=== PATIENT | female | born 1995 | race Hispanic/Latino ===

== ENCOUNTER 2018-11-29 17:05 | Emergency (ER) | payer SELFPAY ==
--- NOTE | 2018-11-29 19:14 | EDPHYS ---
Physician Documentation [facility] Name: Dahlia Justin Age: 23 yrs Sex: Female : 1995 Arrival Date: 11/29/2018 Time: 17:09 Bed 28 Private MD: ED Physician Adrien Payan HPI: 11/29 17:54 This 23 yrs old Female presents to ER via Ambulatory with complaints of Flu jmm Symptoms. 17:54 The patient or guardian reports cough, described as moderate. Onset: The jmm symptoms/episode began/occurred gradually, 2 day(s) ago. Modifying factors: The symptoms are alleviated by nothing. the symptoms are aggravated by nothing. Associated signs and symptoms: Pertinent positives: fever, sore throat. Associated signs and symptoms: Pertinent negatives: chest pain, diarrhea, ear ache, nausea, vomiting. 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 - Social history:: Smoking status: Patient/guardian denies using tobacco. - Ebola Screening: : Patient denies travel to an Ebola-affected area in the 21 days before illness onset. ROS: 17:54 Constitutional: Positive for fever. jmm 17:54 ENT: Positive for sinus congestion, sinus pain, sore throat. 17:54 Respiratory: Positive for cough. 17:54 Abdomen/GI: Negative for vomiting, diarrhea. 17:54 All other systems are negative. Exam: 17:54 Head/Face: atraumatic. jmm 17:54 Neck: Trachea midline, Supple Chest/axilla: Normal chest wall appearance and motion. 17:54 Constitutional: The patient appears in no acute distress, alert, awake. 17:54 ENT: TM's: erythema, that is mild, bilaterally, Posterior pharynx: erythema, that is mild. 17:54 Cardiovascular: Rate: normal, Rhythm: regular, Pulses: no pulse deficits are appreciated. 17:54 Respiratory: the patient does not display signs of respiratory distress, Respirations: normal, Breath sounds: are clear throughout. 17:54 Abdomen/GI: Inspection: abdomen appears normal, Bowel sounds: normal. 17:54 Back: ROM is normal. 17:54 Musculoskeletal/extremity: ROM: intact in all extremities. 17:54 Neuro: Orientation: is normal, Mentation: is normal, Memory: is normal. 17:54 Psych: Behavior/mood is pleasant, cooperative. Vital Signs: 17:13 BP 122 / 73; Pulse 101; Resp 20; Temp 97.4; Pulse Ox 98% on R/A; Weight 97.52 kg; aj Height 5 ft. 1 in. (154.94 cm); 18:06 BP 118 / 75; Pulse 95; Resp 18; Pulse Ox 99% on R/A; aj1 19:26 BP 116 / 71; Pulse 92; Resp 16 S; Temp 99.2(O); Pulse Ox 99% on R/A; ca1 17:13 Body Mass Index 40.62 (97.52 kg, 154.94 cm) aj MDM: 17:54 Patient medically screened. [facility] 19:12 Data reviewed: vital signs, nurses notes. Counseling: I had a detailed discussion with lucio the patient and/or guardian regarding: the historical points, exam findings, and any diagnostic results supporting the discharge/admit diagnosis, lab results, the need for outpatient follow up, to return to the emergency department if symptoms worsen or persist or if there are any questions or concerns that arise at home. ED course: Patient is alert and non toxic in appearance in the ED. Patient advised to follow up with pcp and otherwise given strict return precautions. Patient understood and agrees with the plan of care. . 11/29 18:02 Order name: Flu; Complete Time: 19:07 [facility] 11/29 18:02 Order name: Strep; Complete Time: 19:09 [facility] 11/29 19:07 Order name: Throat Culture EDMS Administered Medications: No medications were administered Disposition: 11/30 07:24 Co-signature as Attending Physician, Adrien Payan MD I agree with the assessment and kdr plan of care. Disposition: 11/29/18 19:13 Discharged to Home. Impression: Influenza due to certain identified influenza viruses. - Condition is Stable. - Discharge Instructions: Influenza, Adult. - Prescriptions for Tamiflu 75 mg Oral Capsule - take 1 tablet by ORAL route every 12 hours for 5 days; 10 tablet. - Medication Reconciliation Form, Thank You Letter, Antibiotic Education, Prescription Opioid Use form. - Follow up: Private Physician; When: 1 - 2 days; Reason: Recheck today's complaints, Continuance of care, Re-evaluation by your physician. Signatures: Dispatcher [employer] EDWhitley Villalba RN RN aj1 Susan Dunham RN RN aj Adrien Payan MD MD kdr Mickail, Joel, PA PA jmm Acob, Cheryl RN RN ca1 Corrections: (The following items were deleted from the chart) 11/29 19:28 19:13 11/29/2018 19:13 Discharged to Home. Impression: Influenza due to certain ca1 identified influenza viruses. Condition is Stable. Forms are Medication Reconciliation Form, Thank You Letter, Antibiotic Education, Prescription Opioid Use. Follow up: Private Physician; When: 1 - 2 days; Reason: Recheck today's complaints, Continuance of care, Re-evaluation by your physician. tavares
--- NOTE | 2018-11-29 19:14 | ER ---
Nurse's Notes [facility] Name: Dahlia Justin Age: 23 yrs Sex: Female : 1995 Arrival Date: 11/29/2018 Time: 17:09 Bed 28 Private MD: Diagnosis: Influenza due to certain identified influenza viruses Presentation: 11/29 17:12 Presenting complaint: Patient states: Fly symptoms for 4 days with improving fever. aj Care prior to arrival: None. 17:12 Method Of Arrival: Ambulatory aj 17:12 Acuity: WENDI 4 aj 18:43 Transition of care: patient was not received from another setting of care. Onset of aj1 symptoms was November 2018. Risk Assessment: Do you want to hurt yourself or someone else? Patient reports no desire to harm self or others. Initial Sepsis Screen: Does the patient meet any 2 criteria? HR > 90 bpm. No. Patient's initial sepsis screen is negative. Does the patient have a suspected source of infection? Yes: Productive cough/pneumonia. Triage Assessment: 17:13 General: Appears in no apparent distress. comfortable, Behavior is calm, cooperative, aj appropriate for age. Pain: Denies pain. EENT: Reports nasal congestion nasal discharge. Respiratory: Reports cough that is. 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 - Social history:: Smoking status: Patient/guardian denies using tobacco. - Ebola Screening: : Patient denies travel to an Ebola-affected area in the 21 days before illness onset. Screenin:06 Abuse screen: Denies threats or abuse. Denies injuries from another. Nutritional aj1 screening: No deficits noted. Tuberculosis screening: No symptoms or risk factors identified. 19:27 Fall Risk None identified. ca1 Assessment: 18:06 General: Appears in no apparent distress. comfortable, Behavior is calm, cooperative, aj1 appropriate for age. Pain: Complains of pain in chest. Neuro: Level of Consciousness is awake, alert, obeys commands, Oriented to person, place, time, situation. Cardiovascular: Patient's skin is warm and dry. Cardiovascular: Reports chest pain with cough. Respiratory: Airway is patent Respiratory effort is even, unlabored, Respiratory pattern is regular, symmetrical, Breath sounds are clear bilaterally. GI: No signs and/or symptoms were reported involving the gastrointestinal system. : No signs and/or symptoms were reported regarding the genitourinary system. EENT: Reports nasal congestion nasal discharge sore throat. Derm: No signs and/or symptoms reported regarding the dermatologic system. Skin is pink, warm \T\ dry. normal. Musculoskeletal: No signs and/or symptoms reported regarding the musculoskeletal system. Circulation, motion, and sensation intact. Vital Signs: 17:13 BP 122 / 73; Pulse 101; Resp 20; Temp 97.4; Pulse Ox 98% on R/A; Weight 97.52 kg; aj Height 5 ft. 1 in. (154.94 cm); 18:06 BP 118 / 75; Pulse 95; Resp 18; Pulse Ox 99% on R/A; aj1 19:26 BP 116 / 71; Pulse 92; Resp 16 S; Temp 99.2(O); Pulse Ox 99% on R/A; ca1 17:13 Body Mass Index 40.62 (97.52 kg, 154.94 cm) aj ED Course: 17:09 Patient arrived in ED. as 17:13 Triage completed. aj 17:13 Arm band placed on left wrist. Patient placed in waiting room, Patient notified of wait aj time. 17:46 John Connell [facility] 17:46 Adrien Payan MD is Attending Physician. [facility] 18:06 Whitley Treviño, RN is Primary Nurse. aj1 18:06 Patient has correct armband on for positive identification. aj1 18:06 No provider procedures requiring assistance completed. aj1 18:37 Flu and/or RSV swab sent to lab. Strep swab sent to lab. lt1 18:38 Strep Sent. lt1 18:38 Flu Sent. lt1 19:28 Patient did not have IV access during this emergency room visit. ca1 Administered Medications: No medications were administered Outcome: 19:13 Discharge ordered by . [facility] 19:27 Discharged to home ambulatory, with significant other. ca1 19:27 Condition: stable 19:27 Discharge instructions given to patient, Instructed on discharge instructions, follow up and referral plans. medication usage, Demonstrated understanding of instructions, follow-up care, medications, Prescriptions given X 1. 19:28 Patient left the ED. ca1 Signatures: Whitley Treviño, RN RN aj1 Susan Dunham RN RN aj John Connell PA PA jmm Martinez, Amelia as Acob, Cheryl, RN RN ca1 Alejandra Dwyer 1
[2018-11-29 21:38] VITALS: O2SAT 99
[2018-11-29 21:40] VITALS: BP 116/71; TEMP 99.2
== END 2018-11-29 19:28 | disposition home or self-care (01) ==
LOC: ER 17:05
DX: J10.1 Influenza due to other identified influenza virus with other respiratory manifestations (principal)
CPT/HCPCS: 87070; 87081; 87804; 99283

== ENCOUNTER 2019-03-26 08:33 | Emergency (ER) | payer SELFPAY ==
[2019-03-26] MEDS ORDERED: dexAMETHasone 10 MG/ML VIAL ONE (09:02)
--- NOTE | 2019-03-26 09:45 | EDPHYS ---
Physician Documentation [facility] Name: Dahlia Justin Age: 23 yrs Sex: Female : 1995 Arrival Date: 03/26/2019 Time: 08:35 Bed 6 Private MD: ED Physician Kevin Vanegas HPI: 03/26 09:35 This 23 yrs old Female presents to ER via Ambulatory with complaints of Sore jmm Throat. 09:35 The patient presents with sore throat. Onset: The symptoms/episode began/occurred jmm gradually, 2 day(s) ago. Modifying factors: The symptoms are alleviated by nothing, the symptoms are aggravated by nothing. Associated signs and symptoms: Pertinent positives: Sore throat Pertinent negatives cough. This is a 23 year old female with no chronic medical conditions that presents to the ED with complaints of sore throat, fever for the past 2 days. Denies cough. Denies vomiting. Denies shortness of breath. . 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 - Social history:: Smoking status: Patient/guardian denies using tobacco. - Ebola Screening: : Patient denies exposure to infectious person Patient denies travel to an Ebola-affected area in the 21 days before illness onset. ROS: 09:35 Neck: Negative for injury, pain, and swelling, Cardiovascular: Negative for chest pain, jmm palpitations, and edema, Respiratory: Negative for shortness of breath, cough, wheezing, and pleuritic chest pain. 09:35 Abdomen/GI: Negative for abdominal pain, nausea, vomiting, diarrhea, and constipation. 09:35 Constitutional: Positive for body aches, fever. 09:35 ENT: Positive for sore throat. 09:35 Neuro: Positive for headache. 09:35 All other systems are negative. Exam: 09:35 Constitutional: This is a well developed, well nourished patient who is awake, alert, jmm and in no acute distress. Head/Face: atraumatic. Eyes: EOMI, no conjunctival erythema appreciated 09:35 Chest/axilla: Normal chest wall appearance and motion. Cardiovascular: Regular rate and rhythm. No edema appreciated Respiratory: Normal respirations, no respiratory distress appreciated Abdomen/GI: Non distended, soft Back: Normal ROM Skin: General appearance color normal MS/ Extremity: Moves all extremities, no obvious deformities appreciated, no edema noted to the lower extremities Neuro: Awake and alert, normal gait Psych: Behavior is normal, Mood is normal, Patient is cooperative and pleasant 09:35 ENT: TM's: are normal, Posterior pharynx: Airway: normal, Tonsils: enlarged on the right, enlarged on the left, with exudate, Uvula: midline, erythema, that is moderate, exudate, that is moderate, peritonsillar mass, is not appreciated. Vital Signs: 08:41 BP 121 / 92; Pulse 111; Resp 16; Temp 98.3(TE); Pulse Ox 98% on R/A; Weight 92.99 kg; ss Height 5 ft. 1 in. (154.94 cm); Pain 9/10; 09:37 BP 114 / 84; Pulse 97; Resp 17; Pulse Ox 95% on R/A; tw2 08:41 Body Mass Index 38.73 (92.99 kg, 154.94 cm) ss MDM: 08:46 Patient medically screened. liz 09:40 Data reviewed: vital signs, nurses notes. Counseling: I had a detailed discussion with lucio the patient and/or guardian regarding: the historical points, exam findings, and any diagnostic results supporting the discharge/admit diagnosis, lab results, the need for outpatient follow up, to return to the emergency department if symptoms worsen or persist or if there are any questions or concerns that arise at home. 09:42 ED course: PE findings consistent with acute tonsillitis. Patient prescribed oral [facility] antibiotics. Patient given strict return precautions. Patient understood and agrees with the plan of care. . 03/26 08:55 Order name: Strep; Complete Time: 09:41 [facility] 03/26 09:39 Order name: Throat Culture EDMS Administered Medications: 09:04 Drug: Decadron 10 mg Route: IM; Site: right deltoid; aa5 09:20 Follow up: Response: No adverse reaction aa5 Disposition: 12:56 Co-signature as Attending Physician, Kevin Vanegas MD I agree with the assessment and liz plan of care. Disposition: 03/26/19 09:43 Discharged to Home. Impression: Acute pharyngitis. - Condition is Stable. - Discharge Instructions: Pharyngitis. - Prescriptions for Amoxicillin 875 mg Oral Tablet - take 1 tablet by ORAL route every 12 hours for 10 days; 20 tablet. - Medication Reconciliation Form, Thank You Letter, Antibiotic Education, Prescription Opioid Use, Work release form form. - Follow up: Private Physician; When: 2 - 3 days; Reason: Recheck today's complaints, Continuance of care, Re-evaluation by your physician. Signatures: Dispatcher [employer] EDKevin Quezada MD MD cha Mickail, Joel, PA PA jmm Calderon, Audri, RN RN aa5 Courtney Brannon RN RN ss Luz Maria Oconnell 3 Corrections: (The following items were deleted from the chart) 09:52 09:43 03/26/2019 09:43 Discharged to Home. Impression: Acute pharyngitis. Condition is dh3 Stable. Forms are Work release form, Medication Reconciliation Form, Thank You Letter, Antibiotic Education, Prescription Opioid Use. Follow up: Private Physician; When: 2 - 3 days; Reason: Recheck today's complaints, Continuance of care, Re-evaluation by your physician. tavares
--- NOTE | 2019-03-26 09:45 | ER ---
Nurse's Notes [facility] Name: Dahlia Justin Age: 23 yrs Sex: Female : 1995 Arrival Date: 03/26/2019 Time: 08:35 Bed 6 Private MD: Diagnosis: Acute pharyngitis Presentation: 03/26 08:42 Presenting complaint: Patient states: sore throat and subjective fever x 2 days. ss Transition of care: patient was not received from another setting of care. Onset of symptoms was March 24, 2019. Risk Assessment: Do you want to hurt yourself or someone else? Patient reports no desire to harm self or others. Initial Sepsis Screen: Does the patient meet any 2 criteria? No. Patient's initial sepsis screen is negative. Does the patient have a suspected source of infection? No. Patient's initial sepsis screen is negative. Care prior to arrival: None. 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 - Social history:: Smoking status: Patient/guardian denies using tobacco. - Ebola Screening: : Patient denies exposure to infectious person Patient denies travel to an Ebola-affected area in the 21 days before illness onset. Screenin:41 Abuse screen: Denies threats or abuse. Nutritional screening: No deficits noted. aa5 Tuberculosis screening: No symptoms or risk factors identified. Fall Risk None identified. Assessment: 08:50 General: Appears uncomfortable, Behavior is calm, cooperative. Pain: Complains of pain aa5 in throat Pain currently is 9 out of 10 on a pain scale. Neuro: Level of Consciousness is awake, alert, obeys commands, Oriented to person, place, time, situation. Cardiovascular: Heart tones S1 S2 present Rhythm is regular. Respiratory: Airway is patent Respiratory effort is even, unlabored, Respiratory pattern is regular, symmetrical, Breath sounds are clear bilaterally. Denies cough. GI: No signs and/or symptoms were reported involving the gastrointestinal system. : No signs and/or symptoms were reported regarding the genitourinary system. EENT: Throat is reddened. Derm: Skin is pink, warm \T\ dry. Musculoskeletal: Range of motion: intact in all extremities. 09:37 Reassessment: Patient appears in no apparent distress at this time. No changes from tw2 previously documented assessment. Patient and/or family updated on plan of care and expected duration. Pain level reassessed. Patient is alert, oriented x 3, equal unlabored respirations, skin warm/dry/pink. 09:50 Reassessment: Patient is alert, oriented x 3, equal unlabored respirations, skin aa5 warm/dry/pink. Vital Signs: 08:41 BP 121 / 92; Pulse 111; Resp 16; Temp 98.3(TE); Pulse Ox 98% on R/A; Weight 92.99 kg; ss Height 5 ft. 1 in. (154.94 cm); Pain 9/10; 09:37 BP 114 / 84; Pulse 97; Resp 17; Pulse Ox 95% on R/A; tw2 08:41 Body Mass Index 38.73 (92.99 kg, 154.94 cm) ED Course: 08:35 Patient arrived in ED. as 08:38 Katiana Trammell, DAWNA is Primary Nurse. aa5 08:39 John Connell PA is PHCP. [facility] 08:39 Kevin Vanegas MD is Attending Physician. [facility] 08:41 Arm band placed on Patient placed in an exam room, on a stretcher. aa5 08:41 Patient has correct armband on for positive identification. Bed in low position. Call aa5 light in reach. Side rails up X 1. 08:43 Triage completed. 09:00 Strep swab sent to lab. aa5 09:06 No provider procedures requiring assistance completed. aa5 09:50 Patient did not have IV access during this emergency room visit. aa5 Administered Medications: 09:04 Drug: Decadron 10 mg Route: IM; Site: right deltoid; aa5 09:20 Follow up: Response: No adverse reaction aa5 Outcome: :43 Discharge ordered by . [facility] 09:50 Discharged to home ambulatory. aa5 09:50 Condition: stable 09:50 Discharge instructions given to patient, Instructed on discharge instructions, follow up and referral plans. medication usage, Demonstrated understanding of instructions, follow-up care, medications, Prescriptions given X 1. 09:52 Patient left the ED. 3 Signatures: John Connell PA PA jmm Martinez, Amelia as Calderon, Audri, RN RN aa5 Courtney Brannon RN RN ss Reba Farmer RN RN tw2 Luz Maria Oconnell 3
[2019-03-26 10:03] VITALS: BP 114/84; O2SAT 95
[2019-03-26 10:04] VITALS: TEMP 98.3
== END 2019-03-26 09:52 | disposition home or self-care (01) ==
LOC: ER 08:33
DX: J02.9 Acute pharyngitis, unspecified (principal)
CPT/HCPCS: 87070; 87081; 96372; 99283; J1100

== ENCOUNTER 2019-08-03 03:55 | Emergency (ER) | payer SELFPAY ==
[2019-08-03] MEDS ORDERED: KETOROLAC 30 MG/ML INJ ONE (04:16)
[2019-08-03] MEDS ORDERED: NA CHLORIDE 0.9% 1,000 ML ONE (04:17)
[2019-08-03 04:50] LABS: Basophils % 0.5 % (0-1.3); Hematocrit 44.4 % (36.0-45.0); Lymphocytes % 37.8 % (15.3-44.8); MPV 8.1 fL (7.6-11.3)
[2019-08-03 05:02] LABS: ALT/SGPT 32 U/L (12-78); AST/SGOT 26 U/L (15-37); Albumin 3.5 g/dL (3.4-5.0); Alkaline Phosphatase 104 U/L (45-117); BUN Blood Urea Nitrogen 17 mg/dL (7-18); Bicarbonate 28 mmol/L (21-32); Bilirubin Total 0.4 mg/dL (0.2-1.0); Glucose Level 154 mg/dL (74-106); Lipase 49 U/L (73-393); Potassium 3.6 mmol/L (3.5-5.1); Protein, Total 7.8 g/dL (6.4-8.2); Sodium Level 139 mmol/L (136-145)
[2019-08-03] MEDS ORDERED: MAGNE/ALUM HYDROXD 30 ML UCUP ONE (05:17)
[2019-08-03] MEDS ORDERED: LIDOCAINE VISCOUS 2% SOLN 15 ML UDC ONE (05:18)
--- NOTE | 2019-08-03 06:12 | ER ---
Nurse's Notes [facility] Name: Dahlia Justin Age: 24 yrs Sex: Female : 1995 Arrival Date: 08/03/2019 Time: 03:57 Bed 7 Private MD: Diagnosis: Generalized abdominal pain Presentation: 08/03 04:05 Presenting complaint: Patient states: I woke up having dull abdominal pain on and off. rr5 denies nausea/vomiting/diarrhea. 04:05 Transition of care: patient was not received from another setting of care. Onset of rr5 symptoms was August 03, 2019 at 03:30. Risk Assessment: Do you want to hurt yourself or someone else? Patient reports no desire to harm self or others. Initial Sepsis Screen: Does the patient meet any 2 criteria? No. Patient's initial sepsis screen is negative. Does the patient have a suspected source of infection? No. Patient's initial sepsis screen is negative. Care prior to arrival: None. 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 - Coronavirus screen:: The patient has NOT traveled to [place] in the past 14 days. Proceed with normal triage process as indicated. - Social history:: Smoking status: unknown Patient uses alcohol, occasionally. Patient/guardian denies using street drugs. - Ebola Screening: : Patient negative for fever greater than or equal to 101.5 degrees Fahrenheit, and additional compatible Ebola Virus Disease symptoms Patient denies exposure to infectious person Patient denies travel to an Ebola-affected area in the 21 days before illness onset. Screenin:10 Abuse screen: Denies threats or abuse. Denies injuries from another. Nutritional rr5 screening: No deficits noted. Tuberculosis screening: No symptoms or risk factors identified. Fall Risk IV access (20 points). Total Wayne Fall Scale indicates No Risk (0-24 pts). Assessment: 04:05 General: Appears in no apparent distress. uncomfortable, Behavior is calm, cooperative, rr5 appropriate for age. 04:05 Pain: Complains of pain in epigastric area Pain radiates to chest Pain currently is 10 rr5 out of 10 on a pain scale. Quality of pain is described as dull, Pain began suddenly, Is intermittent. Neuro: Level of Consciousness is awake, alert, obeys commands, Oriented to person, place, time, situation, Appropriate for age. Cardiovascular: Capillary refill < 3 seconds Patient's skin is warm and dry. Respiratory: Airway is patent Respiratory effort is even, unlabored, Respiratory pattern is regular, symmetrical. GI: Abdomen is round Bowel sounds present X 4 quads. Abd is non tender Guarding noted in epigastric area Reports upper abdominal pain, epigastric pain, Pain is 10 out of 10 on a pain scale. Patient currently denies diarrhea, nausea, vomiting. : No signs and/or symptoms were reported regarding the genitourinary system. EENT: No signs and/or symptoms were reported regarding the EENT system. Derm: Skin is intact, is healthy with good turgor, Skin temperature is warm. Musculoskeletal: Circulation, motion, and sensation intact. Capillary refill < 3 seconds. 04:35 Reassessment: Patient appears in no apparent distress at this time. Patient is alert, rr5 oriented x 3, equal unlabored respirations, skin warm/dry/pink. awaiting for blood results. Patient states feeling better. Patient states symptoms have improved. Pain: Pain currently is 3 out of 10 on a pain scale. 05:19 Reassessment: Patient appears in no apparent distress at this time. Patient and/or jd3 family updated on plan of care and expected duration. Pain level reassessed. Patient is alert, oriented x 3, equal unlabored respirations, skin warm/dry/pink. Patient states feeling better. 06:09 Reassessment: Patient appears in no apparent distress at this time. Patient and/or jd3 family updated on plan of care and expected duration. Pain level reassessed. Patient is alert, oriented x 3, equal unlabored respirations, skin warm/dry/pink. Patient denies pain at this time. Patient states feeling better. 06:27 Reassessment: Patient appears in no apparent distress at this time. Patient and/or jd3 family updated on plan of care and expected duration. Pain level reassessed. Patient is alert, oriented x 3, equal unlabored respirations, skin warm/dry/pink. Vital Signs: 04:05 BP 117 / 74; Pulse 76; Resp 19; Temp 98.5; Pulse Ox 99% ; Weight 97.52 kg; Height 5 ft. rr5 1 in. (154.94 cm); Pain 10/10; 05:19 BP 108 / 94; Pulse 81; Resp 17 S; Pulse Ox 99% on R/A; Pain 3/10; jd3 05:19 Pain 3/10; jd3 06:09 BP 105 / 64; Pulse 79; Resp 16 S; Pulse Ox 99% on R/A; Pain 0/10; jd3 06:09 Pain 0/10; jd3 04:05 Body Mass Index 40.62 (97.52 kg, 154.94 cm) rr5 ED Course: 03:57 Patient arrived in ED. cl3 03:58 Po Wright RN is Primary Nurse. rr5 03:58 Henry Harry MD is Attending Physician. ps1 04:05 Arm band placed on right wrist. rr5 04:08 Triage completed. rr5 04:11 Patient has correct armband on for positive identification. Placed in gown. Bed in low rr5 position. Call light in reach. Pulse ox on. NIBP on. 04:23 Inserted saline lock: 20 gauge in right antecubital area, using aseptic technique. jd3 Blood collected. placed by EVAN Quinonez. 04:36 Diet: Patient is NPO. explained and instructed.. rr5 04:37 No provider procedures requiring assistance completed. rr5 06:25 IV discontinued, intact, bleeding controlled, No redness/swelling at site. Pressure jd3 dressing applied. Administered Medications: 04:22 Drug: NS 0.9% 1000 ml Route: IV; Rate: 1 bolus; Site: right antecubital; jd3 06:10 Follow up: Response: No adverse reaction; IV Status: Completed infusion; IV Intake: jd3 1000ml 04:22 Drug: TORadol - Ketorolac 15 mg Route: IVP; Site: right antecubital; jd3 05:19 Follow up: Pain 3/10 Adult; Response: No adverse reaction jd3 05:18 Drug: GI Cocktail without - (Maalox Suspension 30 ml, Lidocaine Liquid 2 % 15 jd3 ml) Route: PO; 06:09 Follow up: Pain 0/10 Adult; Response: No adverse reaction; Pain is decreased jd3 Intake: 06:10 IV: 1000ml; Total: 1000ml. jd3 Outcome: 06:11 Discharge ordered by . ps1 06:23 Discharged to home ambulatory, with family. jd3 06:23 Condition: stable 06:23 Discharge instructions given to patient, family, Instructed on discharge instructions, follow up and referral plans. medication usage, Demonstrated understanding of instructions, follow-up care, medications, Prescriptions given X 3. 06:28 Patient left the ED. jd3 Signatures: Donovan Enriquez RN RN jd3 Henry Harry MD MD ps1 Po Wright RN RN rr5 Andree Ellis cl3 Corrections: (The following items were deleted from the chart) 04:24 04:23 Inserted saline lock: 20 gauge in right antecubital area, using aseptic jd3 technique. Blood collected. jd3
--- NOTE | 2019-08-03 06:12 | EDPHYS ---
Physician Documentation [facility] Name: Dahlia Justin Age: 24 yrs Sex: Female : 1995 Arrival Date: 08/03/2019 Time: 03:57 Bed 7 Private MD: ED Physician Henry Harry HPI: 08/03 04:05 This 24 yrs old Female presents to ER via Unassigned with complaints of ps1 Abdominal Pain, Shortness Of Breath. 04:05 patient was awakened from sleep with epigastric pain and pain with deep inspiration. ps1 Patient has recent history of alcohol consumption. Pain is described as dull and rated as moderate. No association with food and does not radiated. No fever. Normal bowel movements. . 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 - Coronavirus screen:: The patient has NOT traveled to [place] in the past 14 days. Proceed with normal triage process as indicated. - Social history:: Smoking status: unknown Patient uses alcohol, occasionally. Patient/guardian denies using street drugs. - Ebola Screening: : Patient negative for fever greater than or equal to 101.5 degrees Fahrenheit, and additional compatible Ebola Virus Disease symptoms Patient denies exposure to infectious person Patient denies travel to an Ebola-affected area in the 21 days before illness onset. ROS: 04:05 Constitutional: Negative for fever, chills, and weight loss, Eyes: Negative for injury, ps1 pain, redness, and discharge, Cardiovascular: Negative for chest pain, palpitations, and edema, Respiratory: Negative for shortness of breath, cough, wheezing, and pleuritic chest pain, MS/Extremity: Negative for injury and deformity, Skin: Negative for injury, rash, and discoloration, Neuro: Negative for headache, weakness, numbness, tingling, and seizure. 04:05 Abdomen/GI: Positive for abdominal pain, nausea. Exam: 04:07 Constitutional: This is a well developed, well nourished patient who is awake, alert, ps1 and in no acute distress. Head/Face: Normocephalic, atraumatic. Eyes: Pupils equal round and reactive to light, extra-ocular motions intact. Lids and lashes normal. Conjunctiva and sclera are non-icteric and not injected. Chest/axilla: Normal chest wall appearance and motion. Nontender with no deformity. No lesions are appreciated. Cardiovascular: Regular rate and rhythm. No gallops, murmurs, or rubs. Normal PMI, no JVD. No pulse deficits. Respiratory: Lungs have equal breath sounds bilaterally, clear to auscultation and percussion. No rales, rhonchi or wheezes noted. No increased work of breathing, no retractions or nasal flaring. MS/ Extremity: Pulses equal, no cyanosis. Neurovascular intact. Full, normal range of motion. Neuro: Awake and alert, GCS 15, oriented to person, place, time, and situation. Cranial nerves II-XII grossly intact. Sensory grossly intact. 04:07 Abdomen/GI: Inspection: abdomen appears normal, Bowel sounds: normal, Palpation: moderate abdominal tenderness, in the epigastric area. Vital Signs: 04:05 BP 117 / 74; Pulse 76; Resp 19; Temp 98.5; Pulse Ox 99% ; Weight 97.52 kg; Height 5 ft. rr5 1 in. (154.94 cm); Pain 10/10; 05:19 BP 108 / 94; Pulse 81; Resp 17 S; Pulse Ox 99% on R/A; Pain 3/10; jd3 05:19 Pain 3/10; jd3 06:09 BP 105 / 64; Pulse 79; Resp 16 S; Pulse Ox 99% on R/A; Pain 0/10; jd3 06:09 Pain 0/10; jd3 04:05 Body Mass Index 40.62 (97.52 kg, 154.94 cm) rr5 MDM: 04:08 Patient medically screened. ps1 08/03 04:05 Order name: CBC with Diff; Complete Time: 05:01 ps1 08/03 04:05 Order name: CMP; Complete Time: 05:05 ps1 08/03 04:05 Order name: Lipase; Complete Time: 05:05 ps1 08/03 04:05 Order name: NPO; Complete Time: 04:07 ps1 Administered Medications: 04:22 Drug: NS 0.9% 1000 ml Route: IV; Rate: 1 bolus; Site: right antecubital; jd3 06:10 Follow up: Response: No adverse reaction; IV Status: Completed infusion; IV Intake: jd3 1000ml 04:22 Drug: TORadol - Ketorolac 15 mg Route: IVP; Site: right antecubital; jd3 05:19 Follow up: Pain 3/10 Adult; Response: No adverse reaction jd3 05:18 Drug: GI Cocktail without - (Maalox Suspension 30 ml, Lidocaine Liquid 2 % 15 jd3 ml) Route: PO; 06:09 Follow up: Pain 0/10 Adult; Response: No adverse reaction; Pain is decreased jd3 Disposition: 08/03/19 06:11 Discharged to Home. Impression: Generalized abdominal pain. - Condition is Stable. - Discharge Instructions: Abdominal Pain, Adult. - Prescriptions for Bentyl 10 mg Oral Capsule - take 1 capsule by ORAL route every 6 hours As needed; 40 capsule. Carafate 1 gram Oral Tablet - take 1 tablet by ORAL route 4 times per day take on an empty stomach, beginning on waking and last dose at bedtime; 100 tablet. Zofran 4 mg Oral Tablet - take 1 tablet by ORAL route every 12 hours As needed; 20 tablet. - Medication Reconciliation Form, Thank You Letter, Antibiotic Education, Prescription Opioid Use form. - Follow up: Private Physician; When: As needed; Reason: Recheck today's complaints, Continuance of care, Re-evaluation by your physician. Follow up: Emergency Department; When: As needed; Reason: Fever > 102 F, Worsening of condition. - Problem is new. - Symptoms have improved. Signatures: Dispatcher [employer] Donovan Baeza RN RN jd3 Henry Harry MD MD ps1 Roque, Raymond RN RN rr5 Corrections: (The following items were deleted from the chart) 06:28 06:11 08/03/2019 06:11 Discharged to Home. Impression: Generalized abdominal pain. jd3 Condition is Stable. Forms are Medication Reconciliation Form, Thank You Letter, Antibiotic Education, Prescription Opioid Use. Follow up: Private Physician; When: As needed; Reason: Recheck today's complaints, Continuance of care, Re-evaluation by your physician. Follow up: Emergency Department; When: As needed; Reason: Fever > 102 F, Worsening of condition. Problem is new. Symptoms have improved. ps1
[2019-08-03 07:46] VITALS: TEMP 98.5; O2SAT 99
[2019-08-03 07:48] VITALS: BP 108/94
== END 2019-08-03 06:28 | disposition home or self-care (01) ==
LOC: ER 03:55
DX: R10.84 Generalized abdominal pain (principal)
CPT/HCPCS: 36415; 80053; 83690; 85025; 96361; 96374; 99284; J7030

== ENCOUNTER 2022-06-08 17:09 | Emergency (ER) | payer BC, SELFPAY ==
--- OUTSIDE RECORDS SUMMARY | 2022-06-08 17:19 | XMS REPORT | Continuity of Care Document ---
:[address] [facility] t Address [address] [place] [address] Care Team Providers Name Role Phone TOM DOMINGUEZ Primary Care Physician Unavailable SEPIDEH ANTHONY Attending Clinician Unavailable AMALIA MYERS Attending Clinician Unavailable 2, [facility] Attending Clinician Unavailable Abhi Mendoza MD Attending Clinician ABHI MENDOZA Attending Clinician Unavailable Doctor Unassigned, [place] Attending Clinician Unavailable Sepideh Anthony Attending Clinician Suresh Noriega Attending Clinician Vinita Mobley Attending Clinician SEPIDEH ANTHONY Attending Clinician Unavailable Sabina Coley MA Attending Clinician Unavailable LEAH JAMIL Attending Clinician Unavailable Lab, [facility] Pob I Attending Clinician Unavailable Leah Pacheco Attending Clinician Gisela Duff Attending Clinician GISELA LAINEZ Attending Clinician Unavailable Keisha Garcia Attending Clinician KEISHA CEJA Attending Clinician Unavailable SEPIDEH ANTHONY Admitting Clinician Unavailable Sepideh Anthony Admitting Clinician Payers Payer Name Policy Type Policy Number Effective Date Expiration Date Lara collazo BCBSTX PPO [id number] 2020 00:00:00 2024 00: 00:00 Problems Condition Condition Condition Status Onset Resolution Last Treating Co mments Source Name Details Category Date Date Treatment Clinician Date Previous Previous Disease Active 2021-06 Unive rs 2-15 ity of section section 00:00: [address] High-risk High-risk Disease Active 2021-06 Uni vers 2-15 ity of in first in first 00:00: [place] trimester trimester 00 [facility] Obesity Obesity Disease Active 2021-06 Univers (BMI (BMI 2-15 ity of 30-39.9) 30-39.9) 00:00: [address] Obesity in Obesity in Disease Active 2021-06 U nivers , , 2-15 [place] [address] [place] [address] History of History of Disease Active 2021-06 U nivers gastric gastric 2-15 ity of restrictiv restrictiv 00:[place] e surgery 00 [facility] Nausea and Nausea and Disease Active 2021-06 U nivers vomiting vomiting 2-15 ity of during during 00:00: [place] 00 [facility] prior to prior to Branch 22 weeks 22 weeks gestation gestation [id number], [id number], Diagnosis Active 2021-10-02 Me moria MORBID MORBID 12-19 16:42:00 l OBESITY OBESITY 00:00: [place] Active 00 12/19/2020 [facility] Morbid Morbid Problem Active 2021-05-24 Olaf den[place] obesity obesity 02:34:07 l (disorder) (disorder) He r[place] Active Problem 05/24/2021 [facility] ILLNESS, ILLNESS, Diagnosis Active 2021-10-02 Memoria UNSPECIFIE UNSPECIFIE 16:42:00 l D D Active [place] [facility] Allergies, Adverse Reactions, Alerts Allergy Allergy Status Severity Reaction(s) Onset Inactive Treating Comm ents Source Name Type Date Date Clinician NO KNOWN Drug Active Univers ALLERGIE Class ity of S [facility] Social History Social Habit Start Date Stop Date Quantity Comments Source ASSERTION 2022-04-16 University of 00:00:00 [facility] Exposure to Not sure University of SARS-CoV-2 [facility] (event) [place] History of Passive smoker University of tobacco use [facility] Tobacco use and 2022-05-27 2022-05-27 Smokeless tobacco Un iversity of exposure 00:00:00 00:00:00 non-user [facility] Alcohol intake 2022-05-27 2022-05-27 Ex-drinker [facility] 00:00:00 00:00:00 (finding) [facility]igned At [birth year] [facility] 00:00:00 [facility] Smoking Status Start Date Stop Date Source Unknown if ever smoked [facility] Social History [facility] Medications Ordered Filled Start Stop Current Ordering Indication Dosage Frequency Signature Comments Components Source Medication Medication Date Date Medication? Clinician (SIG) Name Name lancets 2021-06 Yes Use as Unive rs gauge Misc 08-09 directed ity o f 00:00: [place] 00 [facility] Blood-Gluco 2021-06 Yes Use as Univ ers se 2 directed ity of Meter,Anthony 00:00: [place] nuous [facility] 00 [facility] Blood Sugar 2021-06 Yes Check Unive rs Diagnostic, 08-09 sugar 4 ity o f Disc Strp 00:00: times a [place] 00 day as Medical directed Branch Alcohol 2021-06 Yes Apply to Univer s Swabs PadM 08-09 area(s) 4 ity of 00:00: (four) [place] 00 times Medical daily. Branch metroNIDAZO 2021-06- Yes [id number] 500mg Take 1 Univers LE (FLAGYL) 08-01 tablet by it y of 500 mg 00:00: 05:59 mouth in [place] tablet 00 :00 the Medical morning Branch and 1 tablet in the evening. Do all this for 7 days. metroNIDAZO 2021-06- Yes [id number] 500mg Take 1 Univers LE (FLAGYL) 08-01 tablet by it y of 500 mg 00:00: 05:59 mouth in [place] tablet 00 :00 the Medical morning Branch and 1 tablet in the evening. Do all this for 7 days. PNV 2021-06 Yes Take by Univers no.95/nilay 2-15 mouth. ity of us 14:15: [place] fum/folic 21 Medical ac Branch ( ORAL) PNV 2021-06 Yes Take by Univers no.95/nilay 2-15 mouth. ity of us 14:15: [place] fum/folic 21 Medical ac Branch ( ORAL) PNV 2021-06 Yes Take by Univers no.95/nilay 2-15 mouth. ity of us 14:15: [place] fum/folic 21 Medical ac Branch ( ORAL) PNV 2021-06 Yes Take by Univers no.95/nilay 2-15 mouth. ity of us 14:15: [place] fum/folic 21 Medical ac Branch ( ORAL) PNV 2021-06 Yes Take by Univers no.95/nilay 2-15 mouth. ity of us 14:15: [place] fum/folic 21 Medical ac Branch ( ORAL) PNV 2021-06 Yes Take by Univers no.95/nilay 2-15 mouth. ity of us 14:15: [place] fum/folic 21 Medical ac Branch ( ORAL) pyridoxine, 2021-06 Yes [id number] 25mg Take 1 Univers VITAMIN 2-15 tablet by ity of B-6, 00:00: mouth [place] (VITAMIN 00 every 6 Medical B-6) 25 mg (six) Branch tablet hours as needed for Nausea and Vomiting (N/V). doxylamine 2021-06 Yes [id number] 25mg Take 1 U nivers (UNISOM, 2-15 tablet by ity of DOXYLAMINE, 00:00: [place] 25 mg 00 bedtime as Medica l tablet needed for Branch Nausea and Vomiting (N/V). pyridoxine, 2021-06 Yes [id number] 25mg Take 1 Univers VITAMIN 2-15 tablet by ity of B-6, 00:00: mouth [place] (VITAMIN 00 every 6 Medical B-6) 25 mg (six) Branch tablet hours as needed for Nausea and Vomiting (N/V). doxylamine 2021-06 Yes [id number] 25mg Take 1 U nivers (UNISOM, 2-15 tablet by ity of DOXYLAMINE, [place]:00: [place] 25 mg 00 bedtime as Medica l tablet needed for Branch Nausea and Vomiting (N/V). pyridoxine, 2021-06 Yes [id number] 25mg Take 1 Univers VITAMIN 2-15 tablet by ity of B-6, 00:00: mouth [place] (VITAMIN 00 every 6 Medical B-6) 25 mg (six) Branch tablet hours as needed for Nausea and Vomiting (N/V). doxylamine 2021-06 Yes [id number] 25mg Take 1 U nivers (UNISOM, 2-15 tablet by ity of DOXYLAMINE, [place]:00: [place] 25 mg 00 bedtime as Medica l tablet needed for Branch Nausea and Vomiting (N/V). pyridoxine, 2021-06 Yes [id number] 25mg Take 1 Univers VITAMIN 2-15 tablet by ity of B-6, 00:00: mouth [place] (VITAMIN 00 every 6 Medical B-6) 25 mg (six) Branch tablet hours as needed for Nausea and Vomiting (N/V). doxylamine 2021-06 Yes [id number] 25mg Take 1 U nivers (UNISOM, 2-15 tablet by ity of DOXYLAMINE, [place]:00: [place] 25 mg 00 bedtime as Medica l tablet needed for Branch Nausea and Vomiting (N/V). pyridoxine, 2021-06 Yes [id number] 25mg Take 1 Univers VITAMIN 2-15 tablet by ity of B-6, 00:00: mouth [place] (VITAMIN 00 every 6 Medical B-6) 25 mg (six) Branch tablet hours as needed for Nausea and Vomiting (N/V). doxylamine 2021-06 Yes [id number] 25mg Take 1 U nivers (UNISOM, 2-15 tablet by ity of DOXYLAMINE, [place]:00: [place] 25 mg 00 bedtime as Medica l tablet needed for Branch Nausea and Vomiting (N/V). pyridoxine, 2021-06 Yes [id number] 25mg Take 1 Univers VITAMIN 2-15 tablet by ity of B-6, 00:00: mouth [place] (VITAMIN 00 every 6 Medical B-6) 25 mg (six) Branch tablet hours as needed for Nausea and Vomiting (N/V). doxylamine 2021-06 Yes [id number] 25mg Take 1 U nivers (UNISOM, 2-15 tablet by ity of DOXYLAMINE, [place]:00: [place] 25 mg 00 bedtime as Medica l tablet needed for Branch Nausea and Vomiting (N/V). multivitami 2020-06 Yes 1 mL =, Mem oria n with iron 2-09 PO, Daily, l 16:50: 0 [place] 00 Refill(s) Calcium 2020-06 Yes PO, BID, 0 [place] den[place] Citrate 2-09 Refill(s) l 16:50: [place] 00 Vitamin D3 2020-06 Yes 0 Memoria 2-09 Refill(s) l 16:50: [place] 00 multivitami 2020-06 Yes 1 mL =, Mem oria n with iron 2-09 PO, Daily, l 16:50: 0 [place] 00 Refill(s) Calcium 2020-06 Yes PO, BID, 0 Olaf den[place] Citrate 2-09 Refill(s) l 16:50: [place] 00 Vitamin D3 2020-06 Yes 0 Memoria 2-09 Refill(s) l 16:50: [place] 00 multivitami 2020-06 Yes 1 mL =, Mem oria n with iron 2-09 PO, Daily, l 16:50: 0 [place] 00 Refill(s) Calcium 2020-06 Yes PO, BID, 0 Olaf dena Citrate 2-09 Refill(s) l 16:50: [place] 00 Vitamin D3 2020-06 Yes 0 Memoria 2-09 Refill(s) l 16:50: [place] 00 ursodiol 2020-06 Yes 300 mg = 1 Mem oria 300 mg oral 1-02 cap, PO, l capsule 15:50: BID, Take Laura nn 00 2 times per day for 4 months., # 60 cap, 3 Refill(s), Pharmacy: [facility] #[id number], 154.94, cm, 02/19/21 11:34:00 CDT, Height, 102.727, kg, 02/19/21 11:34:00 CDT, Weight ursodiol 2020-06 Yes 300 mg = 1 Mem oria 300 mg oral 1-02 cap, PO, l capsule 15:50: BID, Take Laura nn 00 2 times per day for 4 months., # 60 cap, 3 Refill(s), Pharmacy: [facility] #[id number], 154.94, cm, 02/19/21 11:34:00 CDT, Height, 102.727, kg, 02/19/21 11:34:00 CDT, Weight ursodiol 1 Yes 300 mg = 1 Mem oria 300 mg oral 1-02 cap, PO, l capsule 15:50: BID, Take Lauar nn 00 2 times per day for 4 months., # 60 cap, 3 Refill(s), Pharmacy: [facility] #[id number], 154.94, cm, 02/19/21 11:34:00 CDT, Height, 102.727, kg, 02/19/21 11:34:00 CDT, Weight ursodiol 2020-0 Yes 300 mg = 1 Mem oria 300 mg oral 9- cap, PO, l capsule 18:11: BID, # 180 Herm bairon 00 cap, 1 Refill(s), Pharmacy: [facility] #[id number], 154.94, cm, 02/19/21 11:34:00 CDT, Height, 102.727, kg, 02/19/21 11:34:00 CDT, Weight ursodiol 2020-0 Yes 300 mg = 1 Mem oria 300 mg oral 9-09 cap, PO, l capsule 18:11: BID, # 180 Herm bairon 00 cap, 1 Refill(s), Pharmacy: [facility] #[id number], 154.94, cm, 02/19/21 11:34:00 CDT, Height, 102.727, kg, 02/19/21 11:34:00 CDT, Weight ursodiol 2020-0 Yes 300 mg = 1 Mem oria 300 mg oral 9-09 cap, PO, l capsule 18:11: BID, # 180 Herm bairon 00 cap, 1 Refill(s), Pharmacy: [facility] #[id number], 154.94, cm, 02/19/21 11:34:00 CDT, Height, 102.727, kg, 02/19/21 11:34:00 CDT, Weight Ondansetron 2020-0 Yes 4 mg = 1 Me moria 4 MG Oral 9-04 tab, PO, l Tablet 16:55: Q6H, PRN [place] [Zofran] 00 Nausea/Vom iting, X 8 day, # 30 tab, 0 Refill(s), Pharmacy: [facility] #[id number], 157.48, cm, 02/11/21 14:03:00 CDT, Height, 108.636, kg, 02/11/21 14:03:00 CDT, Weight Ondansetron 0 Yes 4 mg = 1 Me moria 4 MG Oral 9-04 tab, PO, l Tablet 16:55: Q6H, PRN [place] [Zofran] 00 Nausea/Vom iting, X 8 day, # 30 tab, 0 Refill(s), Pharmacy: [facility] #[id number], 157.48, cm, 02/11/21 14:03:00 CDT, Height, 108.636, kg, 02/11/21 14:03:00 CDT, Weight Ondansetron 0 Yes 4 mg = 1 Me moria 4 MG Oral 9-04 tab, PO, l Tablet 16:55: Q6H, PRN [place] [Zofran] 00 Nausea/Vom iting, X 8 day, # 30 tab, 0 Refill(s), [id number], 157.48, cm, 02/11/21 14:03:00 CDT, Height, 108.636, kg, 02/11/21 14:03:00 CDT, Weight tramadol 0 No 50 mg = 1 Olaf dena hydrochlori 9-03 tab, PO, l de 50 MG 19:36: Q4H, PRN Laura nn Oral Tablet 00 Pain Score 1-3, # 24 tab, 0 Refill(s), [id number], 157.48, cm, 02/11/21 14:03:00 CDT, Height, 108.636, kg, 02/11/21 14:03:00 CDT, Weight tramadol 2020-0 No 50 mg = 1 Olaf dena hydrochlori 9-03 tab, PO, l de 50 MG 19:36: Q4H, PRN Laura nn Oral Tablet 00 Pain Score 1-3, # 24 tab, 0 Refill(s), Pharmacy: [facility] #[id number], 157.48, cm, 02/11/21 14:03:00 CDT, Height, 108.636, kg, 02/11/21 14:03:00 CDT, Weight tramadol No 50 mg = 1 Olaf dena hydrochlori 02-13 tab, PO, l de 50 MG 19:36: Q4H, PRN Laura nn Oral Tablet 00 Pain Score 1-3, # 24 tab, 0 Refill(s), Pharmacy: [facility] #[id number], 157.48, cm, 02/11/21 14:03:00 CDT, Height, 108.636, kg, 02/11/21 14:03:00 CDT, Weight Lovenox No Notes: Memoria 02-13 (Same as: l 11:00: Lovenox) [place] 00 Lovenox No Notes: Memoria 02-13 (Same as: l 11:00: Lovenox) [place] 00 Lovenox No Notes: Memoria 02-13 (Same as: l 11:00: Lovenox) Calcium No 1,000 mL, Memor ia Chloride 02-13 Rate: 80 l 0.0014 05:00: ml/hr, [place] MEQ/ML / 00 Infuse Potassium over: 12.5 Chloride hr, Route: 0.004 IV, Dosing MEQ/ML / Weight Sodium 108.636 Chloride kg, Total 0.103 Volume: MEQ/ML / 1,000, Sodium Start Lactate date: 0.028 02/13/21 MEQ/ML 0:00:00 Injectable CDT, Solution Duration: 30 day, Stop date: 03/14/21 23:59:00 CDT, BSA: 2.22 m2, 0 Calcium No 1,000 mL, Memor ia Chloride 02-13 Rate: 80 l 0.0014 05:00: ml/hr, [place] MEQ/ML / 00 Infuse Potassium over: 12.5 Chloride hr, Route: 0.004 IV, Dosing MEQ/ML / Weight Sodium 108.636 Chloride kg, Total 0.103 Volume: MEQ/ML / 1,000, Sodium Start Lactate date: 0.028 02/13/21 MEQ/ML 0:00:00 Injectable CDT, Solution Duration: 30 day, Stop date: 03/14/21 23:59:00 CDT, BSA: 2.22 m2, 0 Calcium 2020-0 No 1,000 mL, Memor ia Chloride 02-13 Rate: 80 l 0.0014 05:00: ml/hr, [place] MEQ/ML / 00 Infuse Potassium over: 12.5 Chloride hr, Route: 0.004 IV, Dosing MEQ/ML / Weight Sodium 108.636 Chloride kg, Total 0.103 Volume: MEQ/ML / 1,000, Sodium Start Lactate date: 0.028 02/13/21 MEQ/ML 0:00:00 Injectable CDT, Solution Duration: 30 day, Stop date: 03/14/21 23:59:00 CDT, BSA: 2.22 m2, 0 Ofirmev 2020-0 No Notes: Memoria 02-12 Infuse l 23:00: over 15 [place] 00 minutes Do not exceed 4gm/day of acetaminop hen MEDICATION WASTE Product Size: 1000 mg Product Wasted: ___ mg Ketorolac 2020-0 No 4 days Memor ia 02-12 l 23:00: MEDICATION [place] 00 WASTE Product Size: 30 mg Product Wasted: ___ mg Ofirmev 2020-0 No Notes: Memoria 02-12 Infuse l 23:00: over 15 [place] 00 minutes Do not exceed 4gm/day of acetaminop hen MEDICATION WASTE Product Size: 1000 mg Product Wasted: ___ mg Ketorolac 2020-0 No 4 days Memor ia 02-12 l 23:00: MEDICATION [place] 00 WASTE Product Size: 30 mg Product Wasted: ___ mg Ofirmev 2020-0 No Notes: Memoria 02-12 Infuse l 23:00: over 15 [place] 00 minutes Do not exceed 4gm/day of acetaminop hen MEDICATION WASTE Product Size: 1000 mg Product Wasted: ___ mg Ketorolac 2020-0 No 4 days Memor ia 02-12 l 23:00: MEDICATION [place] 00 WASTE Product Size: 30 mg Product Wasted: ___ mg midazolam No Route: IV, moria (ANES) 02-12 Drug form: l 19:51: SOLN, [place] ONCE, Stop date: 02/12/21 14:51:00 CDT midazolam 0 No Route: IV, moria (ANES) 02-12 Drug form: l 19:51: SOLN, [place] 00 ONCE, Stop date: 02/12/21 14:51:00 CDT midazolam 0 No Route: IV, moria (ANES) 02-12 Drug form: l 19:51: SOLN, [place] ONCE, Stop date: 02/12/21 14:51:00 CDT glycopyrrol 0 No Route: IV, Memoria ate (ANES) 02-12 Drug form: l 19:36: INJ, ONCE, Stop date: 02/12/21 14:36:00 CDT neostigmine No Route: IV, Memoria (ANES) 02-12 Drug form: l 19:36: INJ, ONCE, Stop date: 02/12/21 14:36:00 CDT glycopyrrol 0 No Route: IV, Memoria ate (ANES) 02-12 Drug form: l 19:36: INJ, ONCE, Stop date: 02/12/21 14:36:00 CDT neostigmine 0 No Route: IV, Memoria (ANES) 02-12 Drug form: l 19:36: INJ, ONCE, Stop date: 02/12/21 14:36:00 CDT glycopyrrol 0 No Route: IV, Memoria ate (ANES) 02-12 Drug form: l 19:36: INJ, ONCE, Stop date: 02/12/21 14:36:00 CDT neostigmine 0 No Route: IV, Memoria (ANES) 02-12 Drug form: l 19:36: INJ, ONCE, Stop date: 02/12/21 14:36:00 CDT Calcium 2020-0 No 1,000 mL, Memor ia Chloride 02-12 Rate: 150 l 0.0014 19:35: ml/hr, [place] MEQ/ML / 00 Infuse Potassium over: 6.7 Chloride hr, Route: 0.004 IV, Dosing MEQ/ML / Weight Sodium 108.636 Chloride kg, Total 0.103 Volume: MEQ/ML / 1,000, Sodium Start Lactate date: 0.028 02/12/21 MEQ/ML 14:35:00 Injectable CDT, Stop Solution date: 02/13/21 0:00:00 CDT, BSA: 2.22 m2, 0 tramadol No Notes: Not Mem oria hydrochlori 02-12 to exceed l de 50 MG 19:35: 400mg/day. Her vila Oral Tablet 00 (Same As: Ultram) Dilaudid No Notes: Memoria 02-12 Same as l 19:35: Dilaudid [place] Labetalol No Notes: Memori a 02-12 (Same as: l 19:35: Normodyne, [place] Trandate) Push over 2 minutes Give bolus over 2-3 minutes. Zofran No Notes: Memoria 02-12 (Same as: l 19:35: Zofran) [place] 00 MEDICATION WASTE Product Size: 4 mg Product Wasted: ___ mg Phenergan No 12.5 mg, Olaf dena 02-12 50 mL, l 19:35: Route: [place] 00 IVPB, Drug form: SOLN, Q6H, Dosing Weight 108.636, kg, PRN Nausea & Vomiting, Start date: 02/12/21 14:35:00 CDT, Duration: 30 day, Stop date: 03/14/21 14:34:00 CDT, 0 Calcium No 1,000 mL, Memor ia Chloride 02-12 Rate: 150 l 0.0014 19:35: ml/hr, [place] MEQ/ML / 00 Infuse Potassium over: 6.7 Chloride hr, Route: 0.004 IV, Dosing MEQ/ML / Weight Sodium 108.636 Chloride kg, Total 0.103 Volume: MEQ/ML / 1,000, Sodium Start Lactate date: 0.028 02/12/21 MEQ/ML 14:35:00 Injectable CDT, Stop Solution date: 02/13/21 0:00:00 CDT, BSA: 2.22 m2, 0 tramadol No Notes: Not Mem oria hydrochlori 02-12 to exceed l de 50 MG 19:35: 400mg/day. Her vila Oral Tablet 00 (Same As: Ultram) Dilaudid No Notes: Memoria 02-12 Same as l 19:35: Dilaudid [place] Labetalol No Notes: Memori a 02-12 (Same as: l 19:35: Normodyne, [place] 00 Trandate) Push over 2 minutes Give bolus over 2-3 minutes. Zofran No Notes: Memoria 02-12 (Same as: l 19:35: Zofran) [place] 00 MEDICATION WASTE Product Size: 4 mg Product Wasted: ___ mg Phenergan No 12.5 mg, Olaf dena 02-12 50 mL, l 19:35: Route: [place] 00 IVPB, Drug form: SOLN, Q6H, Dosing Weight 108.636, kg, PRN Nausea & Vomiting, Start date: 02/12/21 14:35:00 CDT, Duration: 30 day, Stop date: 03/14/21 14:34:00 CDT, 0 Calcium No 1,000 mL, Memor ia Chloride 02-12 Rate: 150 l 0.0014 19:35: ml/hr, [place] MEQ/ML / 00 Infuse Potassium over: 6.7 Chloride hr, Route: 0.004 IV, Dosing MEQ/ML / Weight Sodium 108.636 Chloride kg, Total 0.103 Volume: MEQ/ML / 1,000, Sodium Start Lactate date: 0.028 02/12/21 MEQ/ML 14:35:00 Injectable CDT, Stop Solution date: 02/13/21 0:00:00 CDT, BSA: 2.22 m2, 0 tramadol No Notes: Not Mem oria hydrochlori 02-12 to exceed l de 50 MG 19:35: 400mg/day. Her vila Oral Tablet 00 (Same As: Ultram) Dilaudid No Notes: Memoria 02-12 Same as l 19:35: Dilaudid [place] Labetalol No Notes: Memori a 02-12 (Same as: l 19:35: Normodyne, Trandate) Push over 2 minutes Give bolus over 2-3 minutes. Zofran No Notes: Memoria 02-12 (Same as: l 19:35: Zofran) MEDICATION WASTE Product Size: 4 mg Product Wasted: ___ mg Phenergan No 12.5 mg, Olaf dena 02-12 50 mL, l 19:35: Route: IVPB, Drug form: SOLN, Q6H, Dosing Weight 108.636, kg, PRN Nausea & Vomiting, Start date: 02/12/21 14:35:00 CDT, Duration: 30 day, Stop date: 03/14/21 14:34:00 CDT, 0 ondansetron No Route: IV, Memoria (ANES) 02-12 Drug form: l 19:34: INJ, ONCE, Stop date: 02/12/21 14:34:00 CDT ondansetron No Route: IV, Memoria (ANES) 02-12 Drug form: l 19:34: INJ, ONCE, Stop date: 02/12/21 14:34:00 CDT ondansetron No Route: IV, Memoria (ANES) 02-12 Drug form: l 19:34: INJ, ONCE, Stop date: 02/12/21 14:34:00 CDT fentaNYL No Route: IV, Mem oria (ANES) 02-12 Drug form: l 19:03: INJ, ONCE, Stop date: 02/12/21 14:03:00 CDT lidocaine No Route: IV, Me moria (ANES) 02-12 Drug form: l 19:03: INJ, ONCE, Stop date: 02/12/21 14:03:00 CDT propofol No Route: IV, Mem oria (ANES) 02-12 Drug form: l 19:03: INJ, ONCE, Stop date: 02/12/21 14:03:00 CDT rocuronium 2021-0 No Route: IV, M emoria (ANES) 02-12 Drug form: l 19:03: INJ, ONCE, Stop date: 02/12/21 14:03:00 CDT succinylcho 2020-0 No Route: IV, Memoria line (ANES) 02-12 Drug form: l 19:03: INJ, ONCE, Stop date: 02/12/21 14:03:00 CDT famotidine 0 No Route: IV, M emoria (ANES) 02-12 Drug form: l 19:03: INJ, ONCE, Stop date: 02/12/21 14:03:00 CDT fentaNYL 0 No Route: IV, Mem oria (ANES) 02-12 Drug form: l 19:03: INJ, ONCE, Stop date: 02/12/21 14:03:00 CDT lidocaine 2020-0 No Route: IV, Me moria (ANES) 02-12 Drug form: l 19:03: INJ, ONCE, Stop date: 02/12/21 14:03:00 CDT propofol 2020-0 No Route: IV, Mem oria (ANES) 02-12 Drug form: l 19:03: INJ, ONCE, Stop date: 02/12/21 14:03:00 CDT rocuronium 0 No Route: IV, M emoria (ANES) 02-12 Drug form: l 19:03: INJ, ONCE, Stop date: 02/12/21 14:03:00 CDT succinylcho 0 No Route: IV, Memoria line (ANES) 02-12 Drug form: l 19:03: INJ, ONCE, Stop date: 02/12/21 14:03:00 CDT famotidine 0 No Route: IV, M emoria (ANES) 02-12 Drug form: l 19:03: INJ, ONCE, Stop date: 02/12/21 14:03:00 CDT fentaNYL 2020-0 No Route: IV, Mem oria (ANES) 02-12 Drug form: l 19:03: INJ, ONCE, Stop date: 02/12/21 14:03:00 CDT lidocaine 2020-0 No Route: IV, Me moria (ANES) 02-12 Drug form: l 19:03: INJ, ONCE, Stop date: 02/12/21 14:03:00 CDT propofol 2020-0 No Route: IV, Mem oria (ANES) 02-12 Drug form: l 19:03: INJ, ONCE, Stop date: 02/12/21 14:03:00 CDT rocuronium 0 No Route: IV, M emoria (ANES) 02-12 Drug form: l 19:03: INJ, ONCE, Stop date: 02/12/21 14:03:00 CDT succinylcho No Route: IV, Memoria line (ANES) 02-12 Drug form: l 19:03: INJ, ONCE, Stop date: 02/12/21 14:03:00 CDT famotidine No Route: IV, M emoria (ANES) 02-12 Drug form: l 19:03: INJ, ONCE, Stop date: 02/12/21 14:03:00 CDT dexamethaso 2020-0 No Route: IV, Memoria ne (ANES) 02-12 Drug form: l 18:58: INJ, ONCE, Stop date: 02/12/21 13:58:00 CDT dexamethaso 2020-0 No Route: IV, Memoria ne (ANES) 02-12 Drug form: l 18:58: INJ, ONCE, Stop date: 02/12/21 13:58:00 CDT dexamethaso 2020-0 No Route: IV, Memoria ne (ANES) 02-12 Drug form: l 18:58: INJ, ONCE, Stop date: 02/12/21 13:58:00 CDT metoclopram 2020-0 No Route: IV, Memoria carlos (ANES) 02-12 Drug form: l 18:48: INJ, ONCE, Stop date: 02/12/21 13:48:00 CDT metoclopram 2020-0 No Route: IV, Memoria carlos (ANES) 02-12 Drug form: l 18:48: INJ, ONCE, Stop date: 02/12/21 13:48:00 CDT metoclopram 2020-0 No Route: IV, Memoria carlos (ANES) 02-12 Drug form: l 18:48: INJ, ONCE, [place] 00 Stop date: 02/12/21 13:48:00 CDT Morphine 2020-0 No 2 mg, Memoria 02-12 Route: l 18:45: IVP, [place] 00 Q5Min, Dosing Weight 108.636, kg, PRN Pain Score 4-6, Start date: 02/12/21 13:45:00 CDT, Duration: 5 doses or times, Stop date: Limited # of times Hydromorpho 2020-0 No 0.5 mg, Mem oria ne 02-12 Route: l 18:45: IVP, [place] 00 Q10Min, Dosing Weight 108.636, kg, PRN Pain Score 7-10, Start date: 02/12/21 13:45:00 CDT, Duration: 4 doses or times, Stop date: Limited # of times Flumazenil 2020-0 No 0.2 mg, Olaf dena 02-12 Route: l 18:45: IVP, PRN, [place] 00 Dosing Weight 108.636, kg, PRN Benzodiaze pine Reversal, Initial dose, Start date: 02/12/21 13:45:00 CDT, Duration: 30 day, Stop date: 03/14/21 13:44:00 CDT Naloxone 2020-0 No 0.4 mg, Memori a 02-12 Route: l 18:45: IVP, [place] 00 Q2MIN, Dosing Weight 108.636, kg, PRN Narcotic Reversal, Start date: 02/12/21 13:45:00 CDT, Duration: 8 doses or times, Stop date: Limited # of times Atropine 2020-0 No 0.2 mg, Memori a 02-12 Route: l 18:45: IVP, [place] 00 Q5Min, Dosing Weight 108.636, kg, PRN Other -See Comment, as needed; for symptomati c pulse rate < 80% of mean 50 BPM, Start date: 02/12/21 13:45:00 CDT, Duration: 30 day, Stop date: 03/14/21 13:44:00 CDT Meperidine 1-0 No 12.5 mg, Mem oria 02-12 Route: l 18:45: IVP, [place] 00 Q30Min, Dosing Weight 108.636, kg, PRN Other -See Comment, For shivering, Start date: 02/12/21 13:45:00 CDT, Duration: 2 doses or times, Stop date: Limited # of times Ondansetron 1-0 No 4 mg, Memor ia 02-12 Route: l 18:45: IVP, ONCE, [place] 00 Dosing Weight 108.636, kg, PRN Nausea & Vomiting, Start date: 02/12/21 13:45:00 CDT Promethazin 1-0 No 6.25 mg, Me moria e 02-12 Route: l 18:45: IVPB, [place] 00 ONCE, Dosing Weight 108.636, kg, PRN Nausea & Vomiting, Start date: 02/12/21 13:45:00 CDT Morphine 1-0 No 2 mg, Memoria 02-12 Route: l 18:45: IVP, [place] 00 Q5Min, Dosing Weight 108.636, kg, PRN Pain Score 4-6, Start date: 02/12/21 13:45:00 CDT, Duration: 5 doses or times, Stop date: Limited # of times Hydromorpho 1-0 No 0.5 mg, Mem oria ne 02-12 Route: l 18:45: IVP, [place] 00 Q10Min, Dosing Weight 108.636, kg, PRN Pain Score 7-10, Start date: 02/12/21 13:45:00 CDT, Duration: 4 doses or times, Stop date: Limited # of times Flumazenil 1-0 No 0.2 mg, Olaf dena 02-12 Route: l 18:45: IVP, PRN, [place] 00 Dosing Weight 108.636, kg, PRN Benzodiaze pine Reversal, Initial dose, Start date: 02/12/21 13:45:00 CDT, Duration: 30 day, Stop date: 03/14/21 13:44:00 CDT Naloxone 2021-0 No 0.4 mg, Memori a 02-12 Route: l 18:45: IVP, [place] 00 Q2MIN, Dosing Weight 108.636, kg, PRN Narcotic Reversal, Start date: 02/12/21 13:45:00 CDT, Duration: 8 doses or times, Stop date: Limited # of times Atropine 2021-0 No 0.2 mg, Memori a 02-12 Route: l 18:45: IVP, [place] 00 Q5Min, Dosing Weight 108.636, kg, PRN Other -See Comment, as needed; for symptomati c pulse rate < 80% of mean 50 BPM, Start date: 02/12/21 13:45:00 CDT, Duration: 30 day, Stop date: 03/14/21 13:44:00 CDT Meperidine 1-0 No 12.5 mg, Mem oria 02-12 Route: l 18:45: IVP, [place] 00 Q30Min, Dosing Weight 108.636, kg, PRN Other -See Comment, For shivering, Start date: 02/12/21 13:45:00 CDT, Duration: 2 doses or times, Stop date: Limited # of times Ondansetron 1-0 No 4 mg, Memor ia 02-12 Route: l 18:45: IVP, ONCE, [place] 00 Dosing Weight 108.636, kg, PRN Nausea & Vomiting, Start date: 02/12/21 13:45:00 CDT Promethazin 2021-0 No 6.25 mg, Me moria e 02-12 Route: l 18:45: IVPB, [place] 00 ONCE, Dosing Weight 108.636, kg, PRN Nausea & Vomiting, Start date: 02/12/21 13:45:00 CDT Morphine 1-0 No 2 mg, Memoria 02-12 Route: l 18:45: IVP, [place] 00 Q5Min, Dosing Weight 108.636, kg, PRN Pain Score 4-6, Start date: 02/12/21 13:45:00 CDT, Duration: 5 doses or times, Stop date: Limited # of times Hydromorpho 1-0 No 0.5 mg, Mem oria ne 02-12 Route: l 18:45: IVP, [place] 00 Q10Min, Dosing Weight 108.636, kg, PRN Pain Score 7-10, Start date: 02/12/21 13:45:00 CDT, Duration: 4 doses or times, Stop date: Limited # of times Flumazenil 1-0 No 0.2 mg, Olaf dena 02-12 Route: l 18:45: IVP, PRN, [place] 00 Dosing Weight 108.636, kg, PRN Benzodiaze pine Reversal, Initial dose, Start date: 02/12/21 13:45:00 CDT, Duration: 30 day, Stop date: 03/14/21 13:44:00 CDT Naloxone 2020-0 No 0.4 mg, Memori a 02-12 Route: l 18:45: IVP, [place] 00 Q2MIN, Dosing Weight 108.636, kg, PRN Narcotic Reversal, Start date: 02/12/21 13:45:00 CDT, Duration: 8 doses or times, Stop date: Limited # of times Atropine 2020-0 No 0.2 mg, Memori a 02-12 Route: l 18:45: IVP, [place] 00 Q5Min, Dosing Weight 108.636, kg, PRN Other -See Comment, as needed; for symptomati c pulse rate < 80% of mean 50 BPM, Start date: 02/12/21 13:45:00 CDT, Duration: 30 day, Stop date: 03/14/21 13:44:00 CDT Meperidine 2020-0 No 12.5 mg, Mem oria 02-12 Route: l 18:45: IVP, [place] 00 Q30Min, Dosing Weight 108.636, kg, PRN Other -See Comment, For shivering, Start date: 02/12/21 13:45:00 CDT, Duration: 2 doses or times, Stop date: Limited # of times Ondansetron 2020-0 No 4 mg, Memor ia 02-12 Route: l 18:45: IVP, ONCE, [place] 00 Dosing Weight 108.636, kg, PRN Nausea & Vomiting, Start date: 02/12/21 13:45:00 CDT Promethazin 2020-0 No 6.25 mg, Me moria e 02-12 Route: l 18:45: IVPB, [place] 00 ONCE, Dosing Weight 108.636, kg, PRN Nausea & Vomiting, Start date: 02/12/21 13:45:00 CDT ceFAZolin 2020-0 No Route: IV, moria (ANES) 02-12 Drug form: l mg 18:23: INJ, Start date: 02/12/21 13:23:00 CDT, Stop date: 02/12/21 14:23:00 CDT ceFAZolin 2020-0 No Route: IV, moria (ANES) 02-12 Drug form: l mg 18:23: INJ, Start date: 02/12/21 13:23:00 CDT, Stop date: 02/12/21 14:23:00 CDT ceFAZolin 2020-0 No Route: IV, moria (ANES) 02-12 Drug form: l mg 18:23: INJ, Start date: 02/12/21 13:23:00 CDT, Stop date: 02/12/21 14:23:00 CDT Lactated 2020-0 No Route: IV, Mem oria Ringers 02-12 Total l Injection 18:02: Volume: Laura nn IV (ANES) 00 1,000, 1000 mL Start date: 02/12/21 13:02:00 CDT, Stop date: 02/12/21 14:02:00 CDT Lactated 2020-0 No Route: IV, Mem oria Ringers - Total l Injection 18:02: Volume: Laura nn IV (ANES) 00 1,000, 1000 mL Start date: 02/12/21 13:02:00 CDT, Stop date: 02/12/21 14:02:00 CDT Lactated 2020-0 No Route: IV, Mem oria Ringers - Total l Injection 18:02: Volume: Laura nn IV (ANES) 00 1,000, 1000 mL Start date: 02/12/21 13:02:00 CDT, Stop date: 02/12/21 14:02:00 CDT Calcium 2020-0 No 1,000 mL, Memor ia Chloride 02-12 Rate: 1000 l 0.0014 11:00: ml/hr, [place] MEQ/ML / 00 Infuse Potassium over: 1 Chloride hr, Route: 0.004 IV, Total MEQ/ML / Volume: Sodium 1,000, Chloride Start 0.103 date: MEQ/ML / 02/12/21 Sodium 6:00:00 Lactate CDT, 0.028 Duration: MEQ/ML 1 day, Injectable Stop date: Solution 02/13/21 5:59:00 CDT, 0 Acetaminoph No Notes: Max Memoria en 02-12 acetaminop l 11:00: hen 4000 [place] 00 mg/day (4 gm/day). (Same as: Tylenol Extra Strength) Celebrex No Notes: Memoria 02-12 NSAID. l 11:00: Please [place] check indication . Not for seizure. (Same As: CeleBREX) Neurontin No Notes: Memori a 02-12 (Same as: l 11:00: Neurontin) [place] 00 Emend No Notes: Memoria 02-12 Same as: l 11:00: Emend [place] 00 restricted to the Hematology /Oncology service for high and moderate emetogenic regimen according to ASCO Guidelines [place] h Only for Chemothera py-Induced nausea & vomiting ceFAZolin + No Notes: Olaf dena sterile 02-12 (Same As: l water 20 mL 11:00: Ancef, Herm bairon 00 Kefzol) MEDICATION WASTE Product Size: 1000 mg Product Wasted: ___ mg Calcium No 1,000 mL, Memor ia Chloride 02-12 Rate: 1000 l 0.0014 11:00: ml/hr, [place] MEQ/ML / 00 Infuse Potassium over: 1 Chloride hr, Route: 0.004 IV, Total MEQ/ML / Volume: Sodium 1,000, Chloride Start 0.103 date: MEQ/ML / 02/12/21 Sodium 6:00:00 Lactate CDT, 0.028 Duration: MEQ/ML 1 day, Injectable Stop date: Solution 02/13/21 5:59:00 CDT, 0 Acetaminoph No Notes: Max Memoria en 02-12 acetaminop l 11:00: hen 4000 [place] 00 mg/day (4 gm/day). (Same as: Tylenol Extra Strength) Celebrex No Notes: Memoria 02-12 NSAID. l 11:00: Please [place] 00 check indication . Not for seizure. (Same As: CeleBREX) Neurontin No Notes: Memori a 02-12 (Same as: l 11:00: Neurontin) [place] 00 Emend No Notes: Memoria 02-12 Same as: l 11:00: Emend [place] restricted to the Hematology /Oncology service for high and moderate emetogenic regimen according to ASCO Guidelines [place] Only for Chemothera py-Induced nausea & vomiting ceFAZolin + No Notes: Olaf dena sterile 02-12 (Same As: l water 20 mL 11:00: Ancef, Herm bairon 00 Kefzol) MEDICATION WASTE Product Size: 1000 mg Product Wasted: ___ mg Calcium No 1,000 mL, Memor ia Chloride 02-12 Rate: 1000 l 0.0014 11:00: ml/hr, MEQ/ML / 00 Infuse Potassium over: 1 Chloride hr, Route: 0.004 IV, Total MEQ/ML / Volume: Sodium 1,000, Chloride Start 0.103 date: MEQ/ML / 02/12/21 Sodium 6:00:00 Lactate CDT, 0.028 Duration: MEQ/ML 1 day, Injectable Stop date: Solution 02/13/21 5:59:00 CDT, 0 Acetaminoph No Notes: Max Memoria en 02-12 acetaminop l 11:00: hen 4000 [place] 00 mg/day (4 gm/day). (Same as: Tylenol Extra Strength) Celebrex No Notes: Memoria 02-12 NSAID. l 11:00: Please [place] 00 check indication . Not for seizure. (Same As: CeleBREX) Neurontin No Notes: Memori a 02-12 (Same as: l 11:00: Neurontin) [place] 00 Emend No Notes: Memoria 02-12 Same as: l 11:00: Emend [place] 00 restricted to the Hematology /Oncology service for high and moderate emetogenic regimen according to ASCO Guidelines [place] Only for Chemothera py-Induced nausea & vomiting ceFAZolin + No Notes: Olaf dena sterile 02-12 (Same As: l water 20 mL 11:00: Hiren Cuellar 00 Kefzol) MEDICATION WASTE Product Size: 1000 mg Product Wasted: ___ mg Immunizations Ordered Immunization Filled Immunization Date Status Commen ts Source Name Name [id number] 2020-11-25 Completed Olaf rial [id number] 00:00:00 Herm bairon VNZN-MnR-[id number] 2020-11-25 Completed Olaf rial NABNT-[id number] 00:00:00 Herm bairon HZEK-[id number]-19mR 2020-11-25 Completed Olaf rial NABNT-[id number] 00:00:00 Herm bairon AYOM-YnX-0ODUSE-19mR 2020-11-04 Completed Olaf rial NABNT-[id number] 00:00:00 Herm bairon QCPT-EnW-0RUMBG-19mR 2020-11-04 Completed Olaf rial NABNT-[id number] 00:00:00 Herm bairon TDWK-IgT-1CRHDV-19mR 2020-11-04 Completed Olaf rial [id number]-[id number] 00:00:00 Herm bairon Vital Signs Vital Name Observation Time Observation Value Comments Source Systolic blood 2022-05-27 20:13:00 117 mm[Hg] Univer sity [facility] Diastolic blood 2022-05-27 20:13:00 79 mm[Hg] Unive [facility] Heart rate 2022-05-27 20:13:00 71 /min [facility] Body temperature 2022-05-27 20:13:00 36.78 Kasie [facility] Body height 2022-05-27 20:13:00 157.5 cm [facility] Body weight 2022-05-27 20:13:00 92.625 kg [facility] BMI 2022-05-27 20:13:00 37.35 kg/m2 [facility] Height 2021-05-21 16:48:00 154.94 cm [facility] [place] Weight 2021-05-21 16:48:00 [facility] [place] BMI Calculated 2021-05-21 16:48:00 Memori al [place] Height 2021-02-19 16:34:00 154.94 cm [facility] [place] Weight 2021-02-19 16:34:00 [facility] [place] BMI Calculated 2021-02-19 16:34:00 Memori al [place] Heart Rate 2021-02-13 17:00:35 [facility] [place] Respitory Rate 2021-02-13 17:00:35 Memori al [place] Temperature Oral (F) 2021-02-13 17:00:00 98.2 F [facility] [place] Systolic (mm Hg) 2021-02-13 16:59:47 Olaf rial [place] Diastolic (mm Hg) 2021-02-13 16:59:47 Mem orial [place] Heart Rate 2021-02-13 16:59:47 [facility] [place] Heart Rate 2021-02-13 12:44:05 [facility] [place] Respitory Rate 2021-02-13 12:44:05 Memori al [place] Systolic (mm Hg) 2021-02-13 12:42:26 Olaf rial [place] Diastolic (mm Hg) 2021-02-13 12:42:26 Mem orial [place] Temperature Oral (F) 2021-02-13 12:42:03 99.5 F [facility] [place] Temperature Oral (F) 2021-02-13 09:57:00 99.1 F [facility] [place] Respitory Rate 2021-02-13 09:57:00 Memori al [place] Systolic (mm Hg) 2021-02-13 09:57:00 Olaf rial [place] Diastolic (mm Hg) 2021-02-13 09:57:00 Mem orial [place] Height 2021-02-11 19:03:00 157.48 cm [facility] [place] Weight 2021-02-11 19:03:00 [facility] [place] BMI Calculated 2021-02-11 19:03:00 Memori al [place] Height 2020-08-28 17:41:00 157.48 cm [facility] [place] Weight 2020-08-28 17:41:00 [facility] [place] BMI Calculated 2020-08-28 17:41:00 Ron Purvis Procedures Procedure Date / Time Performing Clinician Source Performed ASSIGNMENT OF BENEFITS 2022-06-08 15:25:49 [facility] URINE DRUG (IMMUNOASSAY) - 2022-05-27 21:04:00 [facility]PRE[facility] SCREEN [facility] GC & CHLAMYDIA AMPLIFIED 2022-05-27 21:04:00 Abhi [facility] GALV ONLY - VAGINAL 2022-05-27 21:04:00 Abhi Mendoza [facility] PATHOGENS BY NUCLEIC ACID [facility] TESTING PAP SMEAR-LIQUID BASED-CP 2022-05-27 21:04:00 Abhi Mendoza Un [facility] POCT TEST 2022-05-27 00:00:00 Abhi Mendoza [facility] POCT URINALYSIS W/O 2022-05-27 00:00:00 Abhi Mendoza [facility] SPECIFIC GRAVITY [facility] ASSIGNMENT OF BENEFITS 2020-11-04 18:34:03 Doctor Unassigned, [facility] NO SHOW OR MISSED 2020-10-13 19:24:27 Doctor Unakerry, [facility] APPOINTMENT POLICY [facility] h ACKNOWLEDGEMENT section Aiden cummings EGD Aiden Knight (esophagogastroduodenoscop y) gastric outlet reduction Plan of Care Planned Activity Planned Date Details Comments Source Encounters Start End Encounter Admission Attending Care Care Encounter Source Date/Time Date/Time Type Type Clinicians Facility Department ID 2021-05-14 Outpatient RAJ [facility] [id number] [place] 01:04:15 [facility] 2022-06-08 2022-06-08 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, 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 [facility] 1.2.840.114 [id number] [facility] 09:30:00 09:45:00 Visit Abhi Mendoza SHOUP [id number] [facility] [id number] Shar DANIEL [id number] Vt dical [address] 2022-06-08 2022-06-08 Outpatient R ABHI MENDOZA [facility] [id number] Univers 09:30:00 09:30:00 ity of [facility] 2022-06-08 2022-06-08 Orders Doctor SEPIDEH 1.2.840.114 [id number] Univers 00:00:00 00:00:00 Only Unassigned, YAA [id number] ity of [place] [facility] [id number] Robert as [phone] [address] 2022-05-31 2022-05-31 Case Abhi Mendoza [facility] [id number] Univers 00:00:00 00:00:00 Management Cam ANGLELIZZ [id number] it[id number] [phone] Vt dical NAL [address] [place] [address] 2022-05-31 2022-05-31 Telephone Abhi Mendoza [facility] [id number] Univers 00:00:00 00:00:00 Cam [place] [id number] i [id number] [phone] Vt dical NAL [address] [place] [address] 2022-05-27 2022-05-27 Outpatient R AHBI MENDOZA [facility] [id number] Univers 14:00:00 15:11:22 ity of [facility] 2022-05-27 2022-05-27 Initial Abhi Mendoza [facility] [id number] Univers 14:00:00 15:11:22 Cam [place] [id number] ity of [id number] [phone] Vt dical NAL 134 [facility] 2021-05-21 2021-05-22 Outpatient nullFlavo [id number] Memoria 16:30:00 05:59:59 r Physicians 05 l [facility] 2021-05-21 2021-05-22 Outpatient nullFlavo [id number] Memoria 16:30:00 05:59:59 r Physicians 05 l Bariatric Cade n Surgery 2021-05-21 2021-05-21 Outpatient REMY Anthony [facility] [id number] 10:30:00 23:59:59 Sepiedh Herann Ibarra 2021-05-21 2021-05-21 Outpatient KYLIE ESPINAL [id number] Memoria 10:30:00 10:30:00 05 l [place] 2021-04-14 2021-04-15 Outpatient nullFlavo [id number] Memoria 15:45:00 04:59:59 r Physicians 04 l Bariatric Cade n Surgery 2021-04-14 2021-04-15 Outpatient nullFlavo [id number] Memoria 15:45:00 04:59:59 r Physicians 04 l Bariatric Cade n Surgery 2021-04-14 2021-04-14 Outpatient Hari, [facility] [id number] 10:45:00 23:59:59 Suresh 04 2021-04-14 2021-04-14 Outpatient KYLIE ESPINAL [id number] Memoria 10:45:00 10:45:00 04 l [place] 2021-02-19 2021-02-20 Outpatient nullFlavo [id number] Memoria 16:45:00 04:59:59 r Physicians 03 l Bariatric Cade n Surgery 2021-02-19 2021-02-20 Outpatient nullFlavo [id number] Memoria 16:45:00 04:59:59 r Physicians 03 l Bariatric Cade n Surgery 2021-02-19 2021-02-19 Outpatient Leandra, [facility] [id number] 11:45:00 23:59:59 Tanyaradzwa 03 Odalis 2021-02-19 2021-02-19 Outpatient KYLIE BETTY [id number] Memoria 11:45:00 11:45:00 03 l [place] 2021-02-12 2021-02-13 Inpatient nullFlavo [facility] [id number] Memoria 15:55:00 21:05:00 r [place] 00 l [facility] 2021-02-12 2021-02-13 Inpatient nullFlavo [facility] [id number] Memoria 15:55:00 21:05:00 r [place] 00 l [facility] 2021-02-12 2021-02-13 Inpatient RAJ, [facility] KIMBERLY [id number] Memoria 10:55:00 16:05:00 SEPIDEH Knight Memoria l [facility] 2021-02-12 2021-02-13 Outpatient Primomo, [facility] [id number] 10:55:00 16:05:00 Sepideh Ibarra 2021-02-12 2021-02-13 Outpatient Primomo, [facility] [id number] 10:55:00 16:05:00 Sepideh Díaz Fred 2021-01-21 2021-01-22 [place] [id number] Memoria 14:30:00 04:59:59 r Physicians 02 l Bariatric Cade n Surgery 2021-01-21 2021-01-22 [place] [id number] Memoria 14:30:00 04:59:59 r Physicians 02 l Bariatric Cade n Surgery 2021-01-21 2021-01-21 Outpatient Leandra [facility] [id number] 09:30:00 23:59:59 Tanyaradzwa 02 Odalis 2021-01-21 2021-01-21 Outpatient KYLIE BETTY [id number] Memoria 09:30:00 09:30:00 02 aguila Knight 2020-11-06 2020-11-06 [facility] 1.2.840.114 [id number] Univers 00:00:00 00:00:00 (Out) Sabina [facility] [id number] ity of [place] [id number] Robert as Professio [phone] Vt dical nal 044 [facility] 2020-11-05 2020-11-05 Outpatient R LOULOU [facility] [id number] Univers 10:40:00 11:12:17 LEAH marcum [facility] 2020-11-05 2020-11-05 Laboratory Lab, Adc Fam Pob I [facility] 1.2. 840.114 [id number] Univers 10:41:05 11:01:05 Only Leah [facility] [id number] ity of [place] [id number] Robert as Professio [phone] Vt dical nal 044 [place] [facility] 2020-11-04 2020-11-04 Outpatient R [facility] [id number] Univers 13:20:00 13:20:00 ity of [facility] 2020-11-04 2020-11-04 Orders Doctor SEPIDEH [id number] Univers 00:00:00 00:00:00 Only Unassigned, YAA [id number] ity of [place] [facility] [id number] Robert as [phone] [address] 2020-10-13 2020-10-13 Laboratory Lab, Adc Fam Pob I [facility] 1.2. 840.114 [id number] Univers 14:25:55 14:45:55 Only Green, [facility] [id number] ity of [place] [id number] Robert as Professio [phone] [address] Office Building One 2020-10-13 2020-10-13 Outpatient [facility] [id number] Univers 14:20:00 14:20:00 GISELA ity [facility] 2020-10-13 2020-10-13 Orders Doctor SEPIDEH 1.2.840.114 [id number] Univers 00:00:00 00:00:00 Only Unassigned, YAA 350.1.13.10 ity of [place] [facility] [id number] Robert as [phone] [address] 2020-10-08 2020-10-09 Outpatient nullFlavo [id number] Memoria 19:00:00 04:59:59 r Physicians 01 l Bariatric Cade n Surgery 2020-10-08 2020-10-09 [place] [id number] Memoria 19:00:00 04:59:59 r Physicians 01 l Bariatric Cade n Surgery 2020-10-08 2020-10-08 Outpatient SNOW Mobley [id number] 14:00:00 23:59:59 Vinita 01 Odalis 2020-10-08 2020-10-08 Outpatient KYLIE ESPINAL [id number] Memoria 14:00:00 14:00:00 01 aguila Knight 2020-08-28 2020-08-29 Outpatient nullFlavo [id number] Memoria 18:00:00 04:59:59 r Physicians 00 l Bariatric Cade n Surgery 2020-08-28 2020-08-29 [place] [id number] Memoria 18:00:00 04:59:59 r Physicians 00 l Bariatric Cade n Surgery 2020-08-28 2020-08-28 Outpatient Leandra, [facility] MG [id number] 13:00:00 23:59:59 Tanyaradzwa 00 Odalis 2020-08-28 2020-08-28 Outpatient MHIE MHIE [id number] Memoria 13:00:00 13:00:00 00 l [place] 2020-02-29 2020-02-29 Laboratory Lab, [facility] Fam Pob I [facility] 1.2. 840.114 [id number] Univers 08:55:08 09:15:08 Only Keisha Ceja [employer] [id number] ity of [place] [id number] Robert as Professio [phone] [address] Office [address] [facility] 2020-02-29 2020-02-29 Outpatient R [facility] [id number] Univers 09:00:00 09:00:00 ity of [facility] 2020-01-29 2020-01-29 Laboratory Lab, [facility] 1.2. 840.114 [id number] Univers 10:46:33 11:06:33 Only Keisha Ceja [id number] ity of [place] [id number] Robert as Professio [phone] [address] Office [facility] 2020-01-29 2020-01-29 Outpatient R REMEDIOS [facility] [id number] Univers 11:00:00 11:00:00 KEISHA ity of [facility] 2020-01-29 2020-01-29 Letter Doctor BUNN 1.2.840.114 [id number] Univers 00:00:00 00:00:00 (Out) Unassigned, YAA 350.1.13.10 ity of [place] [facility] [id number] Robert as [phone] [address] Results Test Description Test Time Test Comments Results Result Comments Source POCT TEST 2022-05-27 20:28:00 Test Item Value Reference Range Interpretation Comme nts POCT PREG (test code = 1605) Positive On board controls acceptable with C Line (test code = 3574) Yes POCT PREG LOT # (test code = 3575) POCT PREG TEST DATE (test code = 3576) [id number] 20:28:00 Test Item Value Reference Range Interpretation Comments POCT PREG (test code = 1605) Positive On board controls acceptable with C Yes Line (test code = 3574) POCT PREG LOT # (test code = 3575) POCT PREG TEST DATE (test code = 3576) [facility] URINALYSIS W/O SPECIFIC [id number] 20:27:00 Test Item Value Reference Range Interpretation Comments POCT PH U (test code = 3254) n/a 5-8 POCT U LEUK EST (test code = n/a Negative - Negative 3263) POCT U NIT (test code = 3262) n/a Negative - Negative POCT U PROT (test code = 3259) Negative Negative - Negative POCT U GLU (test code = 3256) Normal Negative - Negative POCT U KETONE (test code = 3258) n/a Negative - Negative POCT U BLD (test code = 3257) n/a Negative - Negative [facility] URINALYSIS W/O SPECIFIC [id number] 20:27:00 Test Item Value Reference Range Interpretation Comments POCT PH U (test code = 3254) n/a 5-8 POCT U LEUK EST (test code = n/a Negative - Negative 3263) POCT U NIT (test code = 3262) n/a Negative - Negative POCT U PROT (test code = 3259) Negative Negative - Negative POCT U GLU (test code = 3256) Normal Negative - Negative POCT U KETONE (test code = 3258) n/a Negative - Negative POCT U BLD (test code = 3257) n/a Negative - Negative [facility] 11:04:00 Test Item Value Reference Range Interpretation Comments Lymphocytes (test code = Lymphocytes) 11.5 20.0-40.0 [id number] 11:04:00 Test Item Value Reference Range Interpretation Comments Monocytes (test code = Monocytes) 3.9 2.0-12.0 [id number] 11:04:00 Test Item Value Reference Range Interpretation Comments Basophils (test code = 0.3 See_Comment [Aut omated message] The Basophils) system which ge nerated this result tra nsmitted reference range : <=1.0. The reference r angus was not used to int erpret this result as normal/abnormal . [facility] H[id number] 11:04:00 Test Item Value Reference Range Interpretation Comments Neutrophils # (test code = Neutrophils 7.9 1.5-8.1 #) [facility] [id number] 11:04:00 Test Item Value Reference Range Interpretation Comments Lymphocytes # (test code = Lymphocytes 1.1 1.0-5.5 #) [place] [id number] 11:04:00 Test Item Value Reference Range Interpretation Comments Monocytes # (test code 0.4 See_Comment [Aut omated message] The = Monocytes #) system which generated this result tra nsmitted reference range : <=0.8. The reference r angus was not used to int erpret this result as normal/abnormal . [facility]U5697-44-75 11:04:00 Test Item Value Reference Range Interpretation Comments Microcyte (test code = 1+ *ABN*(02/13/21 6:04 Microcyte) AM) [facility]2021-09-03 11:04:00 Test Item Value Reference Range Interpretation Comments Glucose Lvl (test code = Glucose Lvl) 112 70-99 [facility]2021-09-03 11:04:00 Test Item Value Reference Range Interpretation Comments BUN (test code = BUN) 9 7-22 [facility]2021-09-03 11:04:00 Test Item Value Reference Range Interpretation Comments Creatinine Lvl (test code = Creatinine 0.54 0.50-1.40 Lvl) [facility] [facility]2021-09-03 11:04:00 Test Item Value Reference Range Interpretation Comments Sodium Lvl (test code = Sodium Lvl) 139 135-145 [facility]2021-09-03 11:04:00 Test Item Value Reference Range Interpretation Comments Potassium Lvl (test code = Potassium 4.6 3.5-5.1 Lvl) [place] 394961-09-03 11:04:00 Test Item Value Reference Range Interpretation Comments Glucose Lvl (test code = Glucose Lvl) 112 70-99 [place] 394961-09-03 11:04:00 Test Item Value Reference Range Interpretation Comments BUN (test code = BUN) 9 7-22 [facility]2021-09-03 11:04:00 Test Item Value Reference Range Interpretation Comments Creatinine Lvl (test code = Creatinine 0.54 0.50-1.40 Lvl) [facility]2021-09-03 11:04:00 Test Item Value Reference Range Interpretation Comments Sodium Lvl (test code = Sodium Lvl) 139 135-145 [facility]2021-09-03 11:04:00 Test Item Value Reference Range Interpretation Comments Potassium Lvl (test code = Potassium 4.6 3.5-5.1 Lvl) [facility]2021-09-03 11:04:00 Test Item Value Reference Range Interpretation Comments Chloride Lvl (test code = Chloride Lvl) 108 95-109 [facility]2021-09-03 11:04:00 Test Item Value Reference Range Interpretation Comments Chloride Lvl (test code = Chloride Lvl) 108 95-109 [place] 394961-09-03 11:04:00 Test Item Value Reference Range Interpretation Comments CO2 (test code = CO2) 26 24-32 [facility]2021-09-03 11:04:00 Test Item Value Reference Range Interpretation Comments Calcium Lvl (test code = Calcium Lvl) 8.4 8.5-10.5 [facility]2021-09-03 11:04:00 Test Item Value Reference Range Interpretation Comments AGAP (test code = AGAP) 9.6 10.0-20.0 [place] 394961-09-03 11:04:00 Test Item Value Reference Range Interpretation Comments eGFR (test code = eGFR) 130 [facility]ODVTIPWM5183[facility] 11:04:00 Test Item Value Reference Range Interpretation Comments WBC (test code = WBC) 9.4 3.7-10.[address] [facility] HospitalHwesjjyZIRMMNNMQG0654-14-81 11:04:00 Test Item Value Reference Range Interpretation Comments RBC (test code = RBC) 4.75 4.20-5.[address] [facility] HospitalZncqdumJICUIMYOOJ5308-38-34 11:04:00 Test Item Value Reference Range Interpretation Comments Hgb (test code = Hgb) 12.6 12.0-16.[address] [facility] HospitalVeyqynrCAILCTVKVK4507-41-63 11:04:00 Test Item Value Reference Range Interpretation Comments Hct (test code = Hct) 36.8 36.0-48.[address] [facility] HospitalMyjjivvEISAEJKHXM3761-82-12 11:04:00 Test Item Value Reference Range Interpretation Comments MCV (test code = MCV) 77.6 80.0-98.0 [facility]2021-09-03 11:04:00 Test Item Value Reference Range Interpretation Comments CO2 (test code = CO2) 26 24-[address] [facility] HospitalOtfgmirTXAPNOYYXL9107-14-28 11:04:00 Test Item Value Reference Range Interpretation Comments MCH (test code = MCH) 26.6 pg 27.0-31.[address] [facility] HospitalLtqgeutHBXKSLFPTL4428-78-31 11:04:00 Test Item Value Reference Range Interpretation Comments MCHC (test code = MCHC) 34.3 32.0-36.[address] [facility] HospitalFtzvahgUDHNVSFYIH9636-83-77 11:04:00 Test Item Value Reference Range Interpretation Comments RDW (test code = RDW) 13.3 11.5-14.[address] [facility] HospitalOjnpfrjRZEYDSNURM6927-62-95 11:04:00 Test Item Value Reference Range Interpretation Comments Platelet (test code = Platelet) 286 133-[address] [facility] HospitalDqzrggaBFEQWTTHXT2135-95-00 11:04:00 Test Item Value Reference Range Interpretation Comments MPV (test code = MPV) 8.3 7.4-10.[address] [facility] HospitalPcyfbqtBHENHVNHHL3049-01-38 11:04:00 Test Item Value Reference Range Interpretation Comments Segs (test code = Segs) 84.3 45.0-75.0 [facility]YNPMMQOLML6959-70-14 11:04:00 Test Item Value Reference Range Interpretation Comments Lymphocytes (test code = Lymphocytes) 11.5 20.0-40.[address] [facility] HospitalNlrpubyHREYJZEUTF0077-85-79 11:04:00 Test Item Value Reference Range Interpretation Comments Monocytes (test code = Monocytes) 3.9 2.0-12.0 [place] 602651-09-03 11:04:00 Test Item Value Reference Range Interpretation Comments Basophils (test code = 0.3 See_Comment [Aut omated message] The Basophils) system which ge nerated this result tra nsmitted reference range : <=1.0. The reference r angus was not used to int erpret this result as normal/abnormal . [place] 602651-09-03 11:04:00 Test Item Value Reference Range Interpretation Comments Neutrophils # (test code = Neutrophils 7.9 1.5-8.1 #) [facility]2021-09-03 11:04:00 Test Item Value Reference Range Interpretation Comments Calcium Lvl (test code = Calcium Lvl) 8.4 8.5-10.5 [facility] HospitalUaewthwKHSLTNYPHT9016-79-35 11:04:00 Test Item Value Reference Range Interpretation Comments Lymphocytes # (test code = Lymphocytes 1.1 1.0-5.5 #) [facility] HospitalMmpgjqyBVLDKQVCFK7551-36-16 11:04:00 Test Item Value Reference Range Interpretation Comments Monocytes # (test code 0.4 See_Comment [Aut omated message] The = Monocytes #) system which generated this result tra nsmitted reference range : <=0.8. The reference r angus was not used to int erpret this result as normal/abnormal . [facility] HospitalHlxavuyTIKYFDUKFI7122-02-29 11:04:00 Test Item Value Reference Range Interpretation Comments Microcyte (test code = 1+ *ABN*(02/13/21 6:04 Microcyte) AM) [facility]2021-09-03 11:04:00 Test Item Value Reference Range Interpretation Comments AGAP (test code = AGAP) 9.6 10.0-20.0 [place] 394961-09-03 11:04:00 Test Item Value Reference Range Interpretation Comments eGFR (test code = eGFR) 130 [facility] HospitalUrdhpkiQSFUNDYRRU2261-59-71 11:04:00 Test Item Value Reference Range Interpretation Comments WBC (test code = WBC) 9.4 3.7-10.4 [facility] HospitalTqpeebrTAUIQHVXBL1623-43-90 11:04:00 Test Item Value Reference Range Interpretation Comments RBC (test code = RBC) 4.75 4.20-5.40 [facility] HospitalWfxdwzuPDEYVPMUIZ4103-91-02 11:04:00 Test Item Value Reference Range Interpretation Comments Hgb (test code = Hgb) 12.6 12.0-16.0 [place] 602651-09-03 11:04:00 Test Item Value Reference Range Interpretation Comments Hct (test code = Hct) 36.8 36.0-48.0 [facility] HospitalYrecfpzRLGNVVZZCM9115-19-71 11:04:00 Test Item Value Reference Range Interpretation Comments MCV (test code = MCV) 77.6 80.0-98.0 [facility] HospitalYmgvwgnNXCTWJQAAW5934-95-06 11:04:00 Test Item Value Reference Range Interpretation Comments MCH (test code = MCH) 26.6 pg 27.0-31.0 [facility] HospitalKmrvlpaPFMTSPNCWO4593-81-66 11:04:00 Test Item Value Reference Range Interpretation Comments MCHC (test code = MCHC) 34.3 32.0-36.0 [place] 602651-09-03 11:04:00 Test Item Value Reference Range Interpretation Comments RDW (test code = RDW) 13.3 11.5-14.5 [facility] HospitalPpiwczhLCPUFOKLEZ2278-40-28 11:04:00 Test Item Value Reference Range Interpretation Comments Platelet (test code = Platelet) 286 133-450 [facility] HospitalKtzxfdiHJUVBIWQMW2843-64-60 11:04:00 Test Item Value Reference Range Interpretation Comments MPV (test code = MPV) 8.3 7.4-10.4 [facility] HospitalJpygcozFZBUZPITNQ2947-01-99 11:04:00 Test Item Value Reference Range Interpretation Comments Segs (test code = Segs) 84.3 45.0-75.0 [place] 602651-09-03 11:04:00 Test Item Value Reference Range Interpretation Comments Lymphocytes (test code = Lymphocytes) 11.5 20.0-40.0 [place] 602651-09-03 11:04:00 Test Item Value Reference Range Interpretation Comments Monocytes (test code = Monocytes) 3.9 2.0-12.0 [facility] HospitalYigkdswPEHMRGLCZS1821-06-72 11:04:00 Test Item Value Reference Range Interpretation Comments Basophils (test code = 0.3 See_Comment [Aut omated message] The Basophils) system which ge nerated this result tra nsmitted reference range : <=1.0. The reference r angus was not used to int erpret this result as normal/abnormal . [place] 602651-09-03 11:04:00 Test Item Value Reference Range Interpretation Comments Neutrophils # (test code = Neutrophils 7.9 1.5-8.1 #) [facility] HospitalIluhacmZQTWKYEICS9793-63-10 11:04:00 Test Item Value Reference Range Interpretation Comments Lymphocytes # (test code = Lymphocytes 1.1 1.0-5.5 #) [facility] HospitalBgnvmcwHCXYSGTCPK0509-01-95 11:04:00 Test Item Value Reference Range Interpretation Comments Monocytes # (test code 0.4 See_Comment [Aut omated message] The = Monocytes #) system which generated this result tra nsmitted reference range : <=0.8. The reference r angus was not used to int erpret this result as normal/abnormal . [place] 602651-09-03 11:04:00 Test Item Value Reference Range Interpretation Comments Microcyte (test code = 1+ *ABN*(02/13/21 6:04 Microcyte) AM) [facility]2021-09-03 11:04:00 Test Item Value Reference Range Interpretation Comments Glucose Lvl (test code = Glucose Lvl) 112 70-99 [facility]2021-09-03 11:04:00 Test Item Value Reference Range Interpretation Comments BUN (test code = BUN) 9 7-22 [place] 394961-09-03 11:04:00 Test Item Value Reference Range Interpretation Comments Creatinine Lvl (test code = Creatinine 0.54 0.50-1.40 Lvl) [place] 394961-09-03 11:04:00 Test Item Value Reference Range Interpretation Comments Sodium Lvl (test code = Sodium Lvl) 139 135-145 [facility]2021-09-03 11:04:00 Test Item Value Reference Range Interpretation Comments Potassium Lvl (test code = Potassium 4.6 3.5-5.1 Lvl) [facility]2021-09-03 11:04:00 Test Item Value Reference Range Interpretation Comments Chloride Lvl (test code = Chloride Lvl) 108 95-109 [place] 394961-09-03 11:04:00 Test Item Value Reference Range Interpretation Comments CO2 (test code = CO2) 26 24-32 [place] 394961-09-03 11:04:00 Test Item Value Reference Range Interpretation Comments Calcium Lvl (test code = Calcium Lvl) 8.4 8.5-10.5 [place] 394961-09-03 11:04:00 Test Item Value Reference Range Interpretation Comments AGAP (test code = AGAP) 9.6 10.0-20.0 [place] 394961-09-03 11:04:00 Test Item Value Reference Range Interpretation Comments eGFR (test code = eGFR) 130 [facility] HospitalIxqvlkkAWXOGWVGDD3979-06-62 11:04:00 Test Item Value Reference Range Interpretation Comments WBC (test code = WBC) 9.4 3.7-10.4 [place] 602651-09-03 11:04:00 Test Item Value Reference Range Interpretation Comments RBC (test code = RBC) 4.75 4.20-5.40 [place] 602651-09-03 11:04:00 Test Item Value Reference Range Interpretation Comments Hgb (test code = Hgb) 12.6 12.0-16.0 [place] 602651-09-03 11:04:00 Test Item Value Reference Range Interpretation Comments Hct (test code = Hct) 36.8 36.0-48.0 [place] 602651-09-03 11:04:00 Test Item Value Reference Range Interpretation Comments MCV (test code = MCV) 77.6 80.0-98.0 [place] 602651-09-03 11:04:00 Test Item Value Reference Range Interpretation Comments MCH (test code = MCH) 26.6 pg 27.0-31.0 [place] 602651-09-03 11:04:00 Test Item Value Reference Range Interpretation Comments MCHC (test code = MCHC) 34.3 32.0-36.0 [place] 602651-09-03 11:04:00 Test Item Value Reference Range Interpretation Comments RDW (test code = RDW) 13.3 11.5-14.5 [place] 602651-09-03 11:04:00 Test Item Value Reference Range Interpretation Comments Platelet (test code = Platelet) 286 133-450 [facility] HospitalHkdsenwRWYGFJVXHZ1429-18-89 11:04:00 Test Item Value Reference Range Interpretation Comments MPV (test code = MPV) 8.3 7.4-10.4 [facility] HospitalYhtvbpcFCKAUCVWZA3137-70-24 11:04:00 Test Item Value Reference Range Interpretation Comments Segs (test code = Segs) 84.3 45.0-75.0 [facility]2021-09-01 19:31:00 Test Item Value Reference Range Interpretation Comments AGAP (test code = AGAP) 8.6 10.0-20.0 [facility]2021-09-01 19:31:00 Test Item Value Reference Range Interpretation Comments B/C Ratio (test code = B/C Ratio) 18 1 6-25 [facility]2021-09-01 19:31:00 Test Item Value Reference Range Interpretation Comments eGFR (test code = eGFR) 126 [facility]2021-09-01 19:31:00 Test Item Value Reference Range Interpretation Comments Total Protein (test code = Total 7.7 6.4-8.4 Protein) [facility]2021-09-01 19:31:00 Test Item Value Reference Range Interpretation Comments ALT (test code = ALT) 34 See_Comment [Auto mated message] The system which ge nerated this result transmit phill reference range : <=65. The reference range was not used to interpr et this result as joanne l/abnormal. [facility]2021-09-01 19:31:00 Test Item Value Reference Range Interpretation Comments Alk Phos (test code = Alk Phos) 83 39-136 [facility]2021-09-01 19:31:00 Test Item Value Reference Range Interpretation Comments Bili Total (test code = Bili Total) 0.5 0.2-1.3 [place] 394961-09-01 19:31:00 Test Item Value Reference Range Interpretation Comments Globulin (test code = Globulin) 3.9 2.7-4.2 [place] 394961-09-01 19:31:00 Test Item Value Reference Range Interpretation Comments A/G Ratio (test code = A/G Ratio) 1.0 1 0.7-1.6 [place] 394961-09-01 19:31:00 Test Item Value Reference Range Interpretation Comments Vitamin D, 25-OH, Total (test code = 17 Vitamin D, 25-OH, Total) [facility] HospitalLtxpffqBTQDHVMKOX4489-76-53 19:31:00 Test Item Value Reference Range Interpretation Comments Segs (test code = Segs) 63.7 45.0-75.0 [facility] HospitalUplggnbHUWNNBMHHC6574-81-03 19:31:00 Test Item Value Reference Range Interpretation Comments Lymphocytes (test code = Lymphocytes) 29.6 20.0-40.0 [facility] HospitalRpyofkaYXHSNHMSDO0551-79-82 19:31:00 Test Item Value Reference Range Interpretation Comments Monocytes (test code = Monocytes) 5.4 2.0-12.0 [facility] HospitalFknxvkmBSBKSWDGVE6730-40-02 19:31:00 Test Item Value Reference Range Interpretation Comments Eosinophils (test code = 1.0 See_Comment [A utomated message] The Eosinophils) system which ge nerated this result tra nsmitted reference range : <=4.0. The reference r angus was not used to int erpret this result as normal/abnormal . [facility] HospitalUteqyddJEMKUPYLCM9861-16-22 19:31:00 Test Item Value Reference Range Interpretation Comments Basophils (test code = 0.3 See_Comment [Aut omated message] The Basophils) system which ge nerated this result tra nsmitted reference range : <=1.0. The reference r angus was not used to int erpret this result as normal/abnormal . [facility] HospitalUecwwdjRXKBRXBYJC4623-18-67 19:31:00 Test Item Value Reference Range Interpretation Comments Neutrophils # (test code = Neutrophils 5.6 1.5-8.1 #) [facility] HospitalJannpknQTKIGXVYYN7020-09-37 19:31:00 Test Item Value Reference Range Interpretation Comments Lymphocytes # (test code = Lymphocytes 2.6 1.0-5.5 #) [place] 602651-09-01 19:31:00 Test Item Value Reference Range Interpretation Comments Monocytes # (test code 0.5 See_Comment [Aut omated message] The = Monocytes #) system which generated this result tra nsmitted reference range : <=0.8. The reference r angus was not used to int erpret this result as normal/abnormal . [place] 602651-09-01 19:31:00 Test Item Value Reference Range Interpretation Comments Eosinophils # (test code 0.1 See_Comment [A utomated message] The = Eosinophils #) system whic h generated this result tra nsmitted reference range : <=0.5. The reference r angus was not used to int erpret this result as normal/abnormal . [facility] HospitalPbhtfmkPWQPFVVGFF7961-11-18 19:31:00 Test Item Value Reference Range Interpretation Comments Microcyte (test code = 1+ *ABN*(02/11/21 2:31 Microcyte) PM) [facility] HospitalVkpkrbmIUWRWYLGNJ2448-83-31 19:31:00 Test Item Value Reference Range Interpretation Comments WBC (test code = WBC) 8.7 3.7-10.4 [facility] HospitalKcrpcgkFVREZYLDNL1870-94-91 19:31:00 Test Item Value Reference Range Interpretation Comments RBC (test code = RBC) 4.92 4.20-5.40 [facility] HospitalHkvxhnfHEVIXXSJIR1755-49-45 19:31:00 Test Item Value Reference Range Interpretation Comments Hgb (test code = Hgb) 13.0 12.0-16.0 [facility] HospitalWijtffuISSYQMNTNY7392-37-23 19:31:00 Test Item Value Reference Range Interpretation Comments Hct (test code = Hct) 38.5 36.0-48.0 [facility] HospitalNnmadqzIBVYKLXWTF6145-56-17 19:31:00 Test Item Value Reference Range Interpretation Comments MCV (test code = MCV) 78.4 80.0-98.0 [facility] HospitalLijrkbaLWFVGOXRZW4212-28-24 19:31:00 Test Item Value Reference Range Interpretation Comments MCH (test code = MCH) 26.5 pg 27.0-31.0 [facility] HospitalZcbmixhQAWYMOWUCW6343-30-60 19:31:00 Test Item Value Reference Range Interpretation Comments MCHC (test code = MCHC) 33.9 32.0-36.0 [facility] HospitalWwcmstoOGPIDLTNHR5036-43-00 19:31:00 Test Item Value Reference Range Interpretation Comments RDW (test code = RDW) 13.4 11.5-14.5 [place] 602651-09-01 19:31:00 Test Item Value Reference Range Interpretation Comments Platelet (test code = Platelet) 287 133-450 [facility] HospitalWuotuxxAANWYISYBR9092-67-07 19:31:00 Test Item Value Reference Range Interpretation Comments MPV (test code = MPV) 8.2 7.4-10.[address] [facility] HospitalFbxhnjyHYEEXZDTNH5571-50-58 19:31:00 Test Item Value Reference Range Interpretation Comments PT (test code = PT) 12.3 s 12.0-14.7 [facility] HospitalYistlgbXXTYTRXMDP1049-72-91 19:31:00 Test Item Value Reference Range Interpretation Comments INR (test code = INR) 0.92 1 0.85-1.[address] [facility] HospitalHmsownoRFFCZTXONF4620-31-91 19:31:00 Test Item Value Reference Range Interpretation Comments PTT (test code = PTT) 31.4 s 22.9-35.8 [facility]Da[facility] TYBPBOR3587-35-96 19:31:00 Test Item Value Reference Range Interpretation Comments ABO/Rh (test code = ABO/Rh) O POS [facility] HospitalGI DynamicsGreen[facility] [id number] 19:31:00 Test Item Value Reference Range Interpretation Comments Antibody Scrn (test Negative (02/11/21 2:31 code = Antibody Scrn) PM) [facility] [id number] 19:31:00 Test Item Value Reference Range Interpretation Comments Glucose Lvl (test code = Glucose Lvl) 78 70-99 [facility] [id number] 19:31:00 Test Item Value Reference Range Interpretation Comments BUN (test code = BUN) 11 7-22 [facility] [id number] 19:31:00 Test Item Value Reference Range Interpretation Comments Creatinine Lvl (test code = Creatinine 0.60 0.50-1.40 Lvl) [facility] [id number] 19:31:00 Test Item Value Reference Range Interpretation Comments Sodium Lvl (test code = Sodium Lvl) 139 135-145 [facility] [id number] 19:31:00 Test Item Value Reference Range Interpretation Comments Potassium Lvl (test code = Potassium 3.6 3.5-5.1 Lvl) [facility] [id number] 19:31:00 Test Item Value Reference Range Interpretation Comments Chloride Lvl (test code = Chloride Lvl) 107 95-109 [facility] [id number] 19:31:00 Test Item Value Reference Range Interpretation Comments CO2 (test code = CO2) 27 24-32 [facility] HospitalGI DynamicsUNC HEALTH [id number] 19:31:00 Test Item Value Reference Range Interpretation Comments Calcium Lvl (test code = Calcium Lvl) 8.8 8.5-10.5 [facility]2021-09-01 19:31:00 Test Item Value Reference Range Interpretation Comments Albumin Lvl (test code = Albumin Lvl) 3.8 3.5-5.0 [facility]2021-09-01 19:31:00 Test Item Value Reference Range Interpretation Comments AST (test code = AST) 16 See_Comment [Auto mated message] The system which ge nerated this result transmit phill reference range : <=37. The reference range was not used to interpr et this result as joanne l/abnormal. [facility] HospitalCl[facility] [id number] 19:31:00 Test Item Value Reference Range Interpretation Comments AGAP (test code = AGAP) 8.6 10.0-20.0 [facility] [id number] 19:31:00 Test Item Value Reference Range Interpretation Comments B/C Ratio (test code = B/C Ratio) 18 1 6-25 [facility] [id number] 19:31:00 Test Item Value Reference Range Interpretation Comments eGFR (test code = eGFR) 126 [facility] [id number] 19:31:00 Test Item Value Reference Range Interpretation Comments Total Protein (test code = Total 7.7 6.4-8.4 Protein) [facility]2021-09-01 19:31:00 Test Item Value Reference Range Interpretation Comments ALT (test code = ALT) 34 See_Comment [Auto mated message] The system which ge nerated this result transmit phill reference range : <=65. The reference range was not used to interpr et this result as joanne l/abnormal. [facility] [id number] 19:31:00 Test Item Value Reference Range Interpretation Comments Alk Phos (test code = Alk Phos) 83 39-[address] [facility]Cl[facility] [id number] 19:31:00 Test Item Value Reference Range Interpretation Comments Bili Total (test code = Bili Total) 0.5 0.2-1.[address] [facility]Cl[facility] [id number] 19:31:00 Test Item Value Reference Range Interpretation Comments Globulin (test code = Globulin) 3.9 2.7-4.2 [facility]2021-09-01 19:31:00 Test Item Value Reference Range Interpretation Comments A/G Ratio (test code = A/G Ratio) 1.0 1 0.7-1.6 [place] 394961-09-01 19:31:00 Test Item Value Reference Range Interpretation Comments Vitamin D, 25-OH, Total (test code = 17 Vitamin D, 25-OH, Total) [place] 602651-09-01 19:31:00 Test Item Value Reference Range Interpretation Comments Segs (test code = Segs) 63.7 45.0-75.0 [place] 602651-09-01 19:31:00 Test Item Value Reference Range Interpretation Comments Lymphocytes (test code = Lymphocytes) 29.6 20.0-40.0 [place] 602651-09-01 19:31:00 Test Item Value Reference Range Interpretation Comments Monocytes (test code = Monocytes) 5.4 2.0-12.0 [place] 602651-09-01 19:31:00 Test Item Value Reference Range Interpretation Comments Eosinophils (test code = 1.0 See_Comment [A utomated message] The Eosinophils) system which ge nerated this result tra nsmitted reference range : <=4.0. The reference r angus was not used to int erpret this result as normal/abnormal . [place] 602651-09-01 19:31:00 Test Item Value Reference Range Interpretation Comments Basophils (test code = 0.3 See_Comment [Aut omated message] The Basophils) system which ge nerated this result tra nsmitted reference range : <=1.0. The reference r angus was not used to int erpret this result as normal/abnormal . [place] 602651-09-01 19:31:00 Test Item Value Reference Range Interpretation Comments Neutrophils # (test code = Neutrophils 5.6 1.5-8.1 #) [facility]FjiwtghEFDFZVJKKK9499-30-52 19:31:00 Test Item Value Reference Range Interpretation Comments Lymphocytes # (test code = Lymphocytes 2.6 1.0-5.5 #) [place] 602651-09-01 19:31:00 Test Item Value Reference Range Interpretation Comments Monocytes # (test code 0.5 See_Comment [Aut omated message] The = Monocytes #) system which generated this result tra nsmitted reference range : <=0.8. The reference r angus was not used to int erpret this result as normal/abnormal . [id number] 19:31:00 Test Item Value Reference Range Interpretation Comments Eosinophils # (test code 0.1 See_Comment [A utomated message] The = Eosinophils #) system whic h generated this result tra nsmitted reference range : <=0.5. The reference r angus was not used to int erpret this result as normal/abnormal . [facility]GfwgesjKMQSXJVFSR3842-92-73 19:31:00 Test Item Value Reference Range Interpretation Comments Microcyte (test code = 1+ *ABN*(02/11/21 2:31 Microcyte) PM) [facility]EjywcntJHBDBRDVEJ8065-47-29 19:31:00 Test Item Value Reference Range Interpretation Comments WBC (test code = WBC) 8.7 3.7-10.4 [facility] HospitalLrpjsuwIRCRCYGABY5556-05-69 19:31:00 Test Item Value Reference Range Interpretation Comments RBC (test code = RBC) 4.92 4.20-5.40 [facility] HospitalHclzrwpDNFNDTRNHC1846-49-83 19:31:00 Test Item Value Reference Range Interpretation Comments Hgb (test code = Hgb) 13.0 12.0-16.0 [facility] HospitalTpezavfSAQFOPCJVR3510-27-01 19:31:00 Test Item Value Reference Range Interpretation Comments Hct (test code = Hct) 38.5 36.0-48.0 [facility] HospitalUhfhegpIZRNXNNGTP0723-44-40 19:31:00 Test Item Value Reference Range Interpretation Comments MCV (test code = MCV) 78.4 80.0-98.0 [place] 602651-09-01 19:31:00 Test Item Value Reference Range Interpretation Comments MCH (test code = MCH) 26.5 pg 27.0-31.0 [facility] HospitalFptouhgYDOYKLBOEN0068-82-88 19:31:00 Test Item Value Reference Range Interpretation Comments MCHC (test code = MCHC) 33.9 32.0-36.0 [facility] HospitalPnaauvxHLMSBMHJHZ6974-10-36 19:31:00 Test Item Value Reference Range Interpretation Comments RDW (test code = RDW) 13.4 11.5-14.5 [facility]NAQUAZGKX1784-70-67 19:31:00 Test Item Value Reference Range Interpretation Comments Platelet (test code = Platelet) 287 133-[address] [facility]SyqfnwlSATBCYQAOV0468-93-13 19:31:00 Test Item Value Reference Range Interpretation Comments MPV (test code = MPV) 8.2 7.4-10.4 [facility] HospitalSetkvsvQTILFLDSTE0492-25-00 19:31:00 Test Item Value Reference Range Interpretation Comments PT (test code = PT) 12.3 s 12.0-14.7 [facility] HospitalUylrxbhYRJDOCQTBE8516-91-08 19:31:00 Test Item Value Reference Range Interpretation Comments INR (test code = INR) 0.92 1 0.85-1.17 [facility] HospitalGxzlvjxBPDEWHTRQI1318-46-81 19:31:00 Test Item Value Reference Range Interpretation Comments PTT (test code = PTT) 31.4 s 22.9-35.8 [facility] [employer] [id number] 19:31:00 Test Item Value Reference Range Interpretation Comments ABO/Rh (test code = ABO/Rh) O POS [facility] [employer] [id number] 19:31:00 Test Item Value Reference Range Interpretation Comments Antibody Scrn (test Negative (02/11/21 2:31 code = Antibody Scrn) PM) [facility] [employer] [id number] 19:31:00 Test Item Value Reference Range Interpretation Comments Glucose Lvl (test code = Glucose Lvl) 78 70-99 [facility] [employer] [id number] 19:31:00 Test Item Value Reference Range Interpretation Comments BUN (test code = BUN) 11 7-22 [facility] [employer] [id number] 19:31:00 Test Item Value Reference Range Interpretation Comments Creatinine Lvl (test code = Creatinine 0.60 0.50-1.40 Lvl) [facility] [employer] [id number] 19:31:00 Test Item Value Reference Range Interpretation Comments Sodium Lvl (test code = Sodium Lvl) 139 135-145 [facility] [employer] [id number] 19:31:00 Test Item Value Reference Range Interpretation Comments Potassium Lvl (test code = Potassium 3.6 3.5-5.1 Lvl) [facility]2021-09-01 19:31:00 Test Item Value Reference Range Interpretation Comments Chloride Lvl (test code = Chloride Lvl) 107 95-109 [facility]2021-09-01 19:31:00 Test Item Value Reference Range Interpretation Comments CO2 (test code = CO2) [facility]2021-09-01 19:31:00 Test Item Value Reference Range Interpretation Comments Calcium Lvl (test code = Calcium Lvl) 8.8 8.5-10.5 [facility]2021-09-01 19:31:00 Test Item Value Reference Range Interpretation Comments Albumin Lvl (test code = Albumin Lvl) 3.8 3.5-5.0 [facility]2021-09-01 19:31:00 Test Item Value Reference Range Interpretation Comments AST (test code = AST) 16 See_Comment [Auto mated message] The system which ge nerated this result transmit phill reference range : <=37. The reference range was not used to interpr et this result as joanne l/abnormal. [facility]2021-09-01 19:31:00 Test Item Value Reference Range Interpretation Comments Sodium Lvl (test code = Sodium Lvl) 139 135-145 [facility]2021-09-01 19:31:00 Test Item Value Reference Range Interpretation Comments Potassium Lvl (test code = Potassium 3.6 3.5-5.1 Lvl) [facility]2021-09-01 19:31:00 Test Item Value Reference Range Interpretation Comments Chloride Lvl (test code = Chloride Lvl) 107 95-109 [facility]2021-09-01 19:31:00 Test Item Value Reference Range Interpretation Comments CO2 (test code = CO2) [facility]2021-09-01 19:31:00 Test Item Value Reference Range Interpretation Comments Calcium Lvl (test code = Calcium Lvl) 8.8 8.5-10.5 [facility]2021-09-01 19:31:00 Test Item Value Reference Range Interpretation Comments Albumin Lvl (test code = Albumin Lvl) 3.8 3.5-5.0 [place] [id number] 19:31:00 Test Item Value Reference Range Interpretation Comments AST (test code = AST) 16 See_Comment [Auto mated message] The system which ge nerated this result transmit phill reference range : <=37. The reference range was not used to interpr et this result as joanne l/abnormal. [facility]2021-09-01 19:31:00 Test Item Value Reference Range Interpretation Comments AGAP (test code = AGAP) 8.6 10.0-20.0 [facility]2021-09-01 19:31:00 Test Item Value Reference Range Interpretation Comments B/C Ratio (test code = B/C Ratio) 18 1 6-25 [facility]2021-09-01 19:31:00 Test Item Value Reference Range Interpretation Comments eGFR (test code = eGFR) 126 [facility]2021-09-01 19:31:00 Test Item Value Reference Range Interpretation Comments Total Protein (test code = Total 7.7 6.4-8.4 Protein) [facility]2021-09-01 19:31:00 Test Item Value Reference Range Interpretation Comments ALT (test code = ALT) 34 See_Comment [Auto mated message] The system which ge nerated this result transmit phill reference range : <=65. The reference range was not used to interpr et this result as joanne l/abnormal. [facility]2021-09-01 19:31:00 Test Item Value Reference Range Interpretation Comments Alk Phos (test code = Alk Phos) 83 39-136 [facility]2021-09-01 19:31:00 Test Item Value Reference Range Interpretation Comments Bili Total (test code = Bili Total) 0.5 0.2-1.3 [facility]2021-09-01 19:31:00 Test Item Value Reference Range Interpretation Comments Globulin (test code = Globulin) 3.9 2.7-4.2 [facility]2021-09-01 19:31:00 Test Item Value Reference Range Interpretation Comments A/G Ratio (test code = A/G Ratio) 1.0 1 0.7-1.6 [facility]2021-09-01 19:31:00 Test Item Value Reference Range Interpretation Comments Vitamin D, 25-OH, Total (test code = 17 Vitamin D, 25-OH, Total) [facility] HospitalFzezivjKEXKAENJZS7692-99-39 19:31:00 Test Item Value Reference Range Interpretation Comments Segs (test code = Segs) 63.7 45.0-75.0 [place] 602651-09-01 19:31:00 Test Item Value Reference Range Interpretation Comments Lymphocytes (test code = Lymphocytes) 29.6 20.0-40.0 [place] 602651-09-01 19:31:00 Test Item Value Reference Range Interpretation Comments Monocytes (test code = Monocytes) 5.4 2.0-12.0 [place] 602651-09-01 19:31:00 Test Item Value Reference Range Interpretation Comments Eosinophils (test code = 1.0 See_Comment [A utomated message] The Eosinophils) system which ge nerated this result tra nsmitted reference range : <=4.0. The reference r angus was not used to int erpret this result as normal/abnormal . [place] 602651-09-01 19:31:00 Test Item Value Reference Range Interpretation Comments Basophils (test code = 0.3 See_Comment [Aut omated message] The Basophils) system which ge nerated this result tra nsmitted reference range : <=1.0. The reference r angus was not used to int erpret this result as normal/abnormal . [place] 602651-09-01 19:31:00 Test Item Value Reference Range Interpretation Comments Neutrophils # (test code = Neutrophils 5.6 1.5-8.1 #) [place] 602651-09-01 19:31:00 Test Item Value Reference Range Interpretation Comments Lymphocytes # (test code = Lymphocytes 2.6 1.0-5.5 #) [place] 602651-09-01 19:31:00 Test Item Value Reference Range Interpretation Comments Monocytes # (test code 0.5 See_Comment [Aut omated message] The = Monocytes #) system which generated this result tra nsmitted reference range : <=0.8. The reference r angus was not used to int erpret this result as normal/abnormal . [place] 602651-09-01 19:31:00 Test Item Value Reference Range Interpretation Comments Eosinophils # (test code 0.1 See_Comment [A utomated message] The = Eosinophils #) system whic h generated this result tra nsmitted reference range : <=0.5. The reference r angus was not used to int erpret this result as normal/abnormal . [facility] HospitalJgtvdfcCIWCFREGEX1809-27-90 19:31:00 Test Item Value Reference Range Interpretation Comments Microcyte (test code = 1+ *ABN*(02/11/21 2:31 Microcyte) PM) [facility] HospitalEkmtrjeXOZCEEHQKZ6627-96-37 19:31:00 Test Item Value Reference Range Interpretation Comments WBC (test code = WBC) 8.7 3.7-10.4 [facility] HospitalLrpxgleJZVSDEBYQN9189-88-97 19:31:00 Test Item Value Reference Range Interpretation Comments RBC (test code = RBC) 4.92 4.20-5.40 [facility] HospitalXrorngbWXTQXCNLKT7316-98-68 19:31:00 Test Item Value Reference Range Interpretation Comments Hgb (test code = Hgb) 13.0 12.0-16.0 [facility] HospitalLeywndrGOSJMGAAQY2505-91-46 19:31:00 Test Item Value Reference Range Interpretation Comments Hct (test code = Hct) 38.5 36.0-48.0 [facility] HospitalAwgrbqbCVVLTNHTNB4619-73-32 19:31:00 Test Item Value Reference Range Interpretation Comments MCV (test code = MCV) 78.4 80.0-98.0 [facility] HospitalMxawtgyYBSEYKQTTG5983-06-53 19:31:00 Test Item Value Reference Range Interpretation Comments MCH (test code = MCH) 26.5 pg 27.0-31.0 [facility] HospitalIosmcnlYDQQMBABUU0471-59-98 19:31:00 Test Item Value Reference Range Interpretation Comments MCHC (test code = MCHC) 33.9 32.0-36.0 [facility] HospitalPadfdbuNKFTYEJITM1260-03-66 19:31:00 Test Item Value Reference Range Interpretation Comments RDW (test code = RDW) 13.4 11.5-14.5 [facility] HospitalMymxtdlGWURDAVUCX6305-95-19 19:31:00 Test Item Value Reference Range Interpretation Comments Platelet (test code = Platelet) 287 133-450 [facility] HospitalQtwtsegQKMXOVXHBA8926-64-87 19:31:00 Test Item Value Reference Range Interpretation Comments MPV (test code = MPV) 8.2 7.4-10.4 [facility] HospitalTckpgkvCVCASJNQJX8931-85-00 19:31:00 Test Item Value Reference Range Interpretation Comments PT (test code = PT) 12.3 s 12.0-14.7 [facility] HospitalJhhnnkrFYRSVTKCHX3171-80-92 19:31:00 Test Item Value Reference Range Interpretation Comments INR (test code = INR) 0.92 1 0.85-1.17 [facility] HospitalMfwiebiSWRJKIXGKW8302-84-99 19:31:00 Test Item Value Reference Range Interpretation Comments PTT (test code = PTT) 31.4 s 22.9-35.8 [facility] [id number] 19:31:00 Test Item Value Reference Range Interpretation Comments ABO/Rh (test code = ABO/Rh) O POS [facility] [id number] 19:31:00 Test Item Value Reference Range Interpretation Comments Antibody Scrn (test Negative (02/11/21 2:31 code = Antibody Scrn) PM) [facility]2021-09-01 19:31:00 Test Item Value Reference Range Interpretation Comments Glucose Lvl (test code = Glucose Lvl) 78 70-99 [facility]2021-09-01 19:31:00 Test Item Value Reference Range Interpretation Comments BUN (test code = BUN) 11 7-22 [facility]2021-09-01 19:31:00 Test Item Value Reference Range Interpretation Comments Creatinine Lvl (test code = Creatinine 0.60 0.50-1.40 Lvl) [id number] 19:23:00 Test Item Value Reference Range Interpretation Comments Coronavirus (COVID-19) Not Detected (02/11/21 REYMUNDO (test code = 2:23 PM) Coronavirus (COVID-19) REYMUNDO) [id number] 19:23:00 Test Item Value Reference Range Interpretation Comments Coronavirus (COVID-19) Not Detected (02/11/21 REYMUNDO (test code = 2:23 PM) Coronavirus (COVID-19) REYMUNDO) [id number] 19:23:00 Test Item Value Reference Range Interpretation Comments Coronavirus (COVID-19) Not Detected (02/11/21 REYMUNDO (test code = 2:23 PM) Coronavirus (COVID-19) REYMUNDO) [facility] AND [id number] 19:00:00 Test Item Value Reference Range Interpretation Comments UA Turbidity (test code = Clear (02/11/21 2:00 UA Turbidity) PM) [facility] AND [id number] 19:00:00 Test Item Value Reference Range Interpretation Comments UA Spec Grav (test code = UA Spec 1.004 1 Grav) [facility] AND [id number] 19:00:00 Test Item Value Reference Range Interpretation Comments UA pH (test code = UA pH) 7.0 1 5.0-8.0 [facility] AND [id number] 19:00:00 Test Item Value Reference Range Interpretation Comments UA Protein (test code = UA Negative mg/dL Protein) [facility] AND [id number] 19:00:00 Test Item Value Reference Range Interpretation Comments UA Glucose (test code = UA Negative mg/dL Glucose) [facility] AND [id number] 19:00:00 Test Item Value Reference Range Interpretation Comments UA Bili (test code = Negative *NA*(02/11/21 UA Bili) 2:00 PM) [facility] AND [id number] 19:00:00 Test Item Value Reference Range Interpretation Comments UA Blood (test code = Small *ABN*(02/11/21 UA Blood) 2:00 PM) [facility] AND [id number] 19:00:00 Test Item Value Reference Range Interpretation Comments UA Nitrite (test code Negative (02/11/21 2:00 = UA Nitrite) PM) [facility] AND [id number] 19:00:00 Test Item Value Reference Range Interpretation Comments UA Leuk Est (test Negative (02/11/21 2:00 code = UA Leuk Est) PM) [facility] AND [id number] 19:00:00 Test Item Value Reference Range Interpretation Comments UA Sq Epi (test code = UA Sq Epi) Few /LPF [facility] AND [id number] 19:00:00 Test Item Value Reference Range Interpretation Comments UA WBC (test code = 1 See_Comment [Automa phill message] The UA WBC) system which ge nerated this result transmit phill reference range : <=5. The reference range was not used to interpr et this result as joanne l/abnormal. [facility] AND [id number] 19:00:00 Test Item Value Reference Range Interpretation Comments UA RBC (test code = no gt See_Comment [Automa phill message] The UA RBC) system which ge nerated this result transmit phill reference range : <=2. The reference range was not used to interpr et this result as joanne l/abnormal. [facility] AND [id number] 19:00:00 Test Item Value Reference Range Interpretation Comments UA Bacteria (test code = UA Occasional /HPF Bacteria) [facility] AND [id number] 19:00:00 Test Item Value Reference Range Interpretation Comments UA Mucus (test code = UA Mucus) Few /LPF [facility] AND [id number] 19:00:00 Test Item Value Reference Range Interpretation Comments UA Color (test code = UA Color) Straw [facility] AND [id number] 19:00:00 Test Item Value Reference Range Interpretation Comments UA Ketones (test code = UA Ketones) Negative [facility] AND [id number] 19:00:00 Test Item Value Reference Range Interpretation Comments UA Urobilinogen (test code = UA <=1.0 mg/dL 0.1-1.0 Urobilinogen) [facility] AND [id number] 19:00:00 Test Item Value Reference Range Interpretation Comments UA Turbidity (test code = Clear (02/11/21 2:00 UA Turbidity) PM) [facility] AND [id number] 19:00:00 Test Item Value Reference Range Interpretation Comments UA Spec Grav (test code = UA Spec 1.004 1 Grav) [facility] AND [id number] 19:00:00 Test Item Value Reference Range Interpretation Comments UA pH (test code = UA pH) 7.0 1 5.0-8.0 [facility] AND [id number] 19:00:00 Test Item Value Reference Range Interpretation Comments UA Protein (test code = UA Negative mg/dL Protein) [facility] AND [id number] 19:00:00 Test Item Value Reference Range Interpretation Comments UA Glucose (test code = UA Negative mg/dL Glucose) [facility] AND [id number] 19:00:00 Test Item Value Reference Range Interpretation Comments UA Bili (test code = Negative *NA*(02/11/21 UA Bili) 2:00 PM) [facility] AND [id number] 19:00:00 Test Item Value Reference Range Interpretation Comments UA Blood (test code = Small *ABN*(02/11/21 UA Blood) 2:00 PM) [facility] AND [id number] 19:00:00 Test Item Value Reference Range Interpretation Comments UA Nitrite (test code Negative (02/11/21 2:00 = UA Nitrite) PM) [facility] AND [id number] 19:00:00 Test Item Value Reference Range Interpretation Comments UA Leuk Est (test Negative (02/11/21 2:00 code = UA Leuk Est) PM) [facility] AND [id number] 19:00:00 Test Item Value Reference Range Interpretation Comments UA Sq Epi (test code = UA Sq Epi) Few /LPF [facility] AND [id number] 19:00:00 Test Item Value Reference Range Interpretation Comments UA WBC (test code = 1 See_Comment [Automa phill message] The UA WBC) system which ge nerated this result transmit phill reference range : <=5. The reference range was not used to interpr et this result as joanne l/abnormal. [facility] AND [id number] 19:00:00 Test Item Value Reference Range Interpretation Comments UA RBC (test code = no gt See_Comment [Automa phill message] The UA RBC) system which ge nerated this result transmit phill reference range : <=2. The reference range was not used to interpr et this result as joanne l/abnormal. [facility] AND [id number] 19:00:00 Test Item Value Reference Range Interpretation Comments UA Bacteria (test code = UA Occasional /HPF Bacteria) [facility] AND [id number] 19:00:00 Test Item Value Reference Range Interpretation Comments UA Mucus (test code = UA Mucus) Few /LPF [facility] AND [id number] 19:00:00 Test Item Value Reference Range Interpretation Comments UA Color (test code = UA Color) Straw [facility] AND [id number] 19:00:00 Test Item Value Reference Range Interpretation Comments UA Ketones (test code = UA Ketones) Negative [facility] AND [id number] 19:00:00 Test Item Value Reference Range Interpretation Comments UA Urobilinogen (test code = UA <=1.0 mg/dL 0.1-1.0 Urobilinogen) [facility] AND [id number] 19:00:00 Test Item Value Reference Range Interpretation Comments UA Turbidity (test code = Clear (02/11/21 2:00 UA Turbidity) PM) [facility] AND [id number] 19:00:00 Test Item Value Reference Range Interpretation Comments UA Spec Grav (test code = UA Spec 1.004 1 Grav) [facility] AND [id number] 19:00:00 Test Item Value Reference Range Interpretation Comments UA pH (test code = UA pH) 7.0 1 5.0-8.0 [facility] AND [id number] 19:00:00 Test Item Value Reference Range Interpretation Comments UA Protein (test code = UA Negative mg/dL Protein) [facility] AND [id number] 19:00:00 Test Item Value Reference Range Interpretation Comments UA Glucose (test code = UA Negative mg/dL Glucose) [facility] AND [id number] 19:00:00 Test Item Value Reference Range Interpretation Comments UA Bili (test code = Negative *NA*(02/11/21 UA Bili) 2:00 PM) [facility] AND [id number] 19:00:00 Test Item Value Reference Range Interpretation Comments UA Blood (test code = Small *ABN*(02/11/21 UA Blood) 2:00 PM) [facility] AND [id number] 19:00:00 Test Item Value Reference Range Interpretation Comments UA Nitrite (test code Negative (02/11/21 2:00 = UA Nitrite) PM) [facility] AND [id number] 19:00:00 Test Item Value Reference Range Interpretation Comments UA Leuk Est (test Negative (02/11/21 2:00 code = UA Leuk Est) PM) [facility] AND [id number] 19:00:00 Test Item Value Reference Range Interpretation Comments UA Sq Epi (test code = UA Sq Epi) Few /LPF [facility] AND [id number] 19:00:00 Test Item Value Reference Range Interpretation Comments UA WBC (test code = 1 See_Comment [Automa phill message] The UA WBC) system which ge nerated this result transmit phill reference range : <=5. The reference range was not used to interpr et this result as joanne l/abnormal. [facility] AND [id number] 19:00:00 Test Item Value Reference Range Interpretation Comments UA RBC (test code = no gt See_Comment [Automa phill message] The UA RBC) system which ge nerated this result transmit phill reference range : <=2. The reference range was not used to interpr et this result as joanne l/abnormal. [facility] AND [id number] 19:00:00 Test Item Value Reference Range Interpretation Comments UA Bacteria (test code = UA Occasional /HPF Bacteria) [facility] AND [id number] 19:00:00 Test Item Value Reference Range Interpretation Comments UA Mucus (test code = UA Mucus) Few /LPF [facility] AND [id number] 19:00:00 Test Item Value Reference Range Interpretation Comments UA Color (test code = UA Color) Straw [facility] AND [id number] 19:00:00 Test Item Value Reference Range Interpretation Comments UA Ketones (test code = UA Ketones) Negative [facility] AND [id number] 19:00:00 Test Item Value Reference Range Interpretation Comments UA Urobilinogen (test code = UA <=1.0 mg/dL 0.1-1.0 Urobilinogen) [facility]
[2022-06-08 19:39] LABS: SARS-COV-2 RT PCR NEGATIVE (NEGATIVE)
[2022-06-08] MEDS ORDERED: METOCLOPRAMIDE 10 MG/2mL INJ ONE (20:11)
[2022-06-08] MEDS ORDERED: DIPHENHYDRAMINE 50 MG/ML VIAL ONE (20:11)
[2022-06-08] MEDS ORDERED: Ringers Lactate 1,000 ML IV ONE (20:11)
[2022-06-08 20:32] LABS: Absolute Lymphocytes (CBC) 2.3 K/uL (0.7-4.9); Hematocrit 41.8 % (36.0-45.0); Lymphocytes % 17.5 % (15.3-44.8); MCV 79.6 fL (80-100); MPV 7.5 fL (7.6-11.3); RBC Red Blood Cell Count 5.25 M/uL (3.86-4.86)
[2022-06-08 20:33] LABS: Urine Blood Negative (Negative); Urine Glucose Negative (Negative); Urine Protein Negative (Negative); Urine Specific Gravity 1.025 (1.005-1.030)
[2022-06-08 20:49] LABS: Potassium 3.9 mmol/L (3.5-5.1)
--- NOTE | 2022-06-08 21:43 | RAD REPORT ---
EXAM DESCRIPTION: RAD - Chest Single View - 06/08/2022 9:36 pm CLINICAL HISTORY: fever, cough COMPARISON: ABDOMEN ACUTE SERIES dated 10/13/2007; ABDOMEN ACUTE SERIES dated 07/24/2005 FINDINGS: Lines: None. Lungs: No evidence of edema or pneumonia. Pleural: No significant pleural effusions or pneumothorax. Cardiac: The heart size is within normal limits. Mediastinum: Within normal limits. Bones: No acute fractures. Other: None IMPRESSION: No acute cardiopulmonary disease.
--- NOTE | 2022-06-08 21:52 | ER ---
Nurse's Notes [facility] Name: Dahlia Justin Age: 26 yrs Sex: Female : 1995 Arrival Date: 06/08/2022 Time: 17:12 Bed 10 Private MD: Diagnosis: Cough;Nasal congestion;Vomiting of , unspecified Presentation: 06/08 17:48 Chief complaint: Patient states: Flu-like symptoms for 17 days. 2 months and ll1 has N/V every morning. G2, P2. Home covid test negative. Coronavirus screen: Vaccine status: Patient reports receiving the 1st dose of the Covid vaccine. Client denies travel out of the [place] in the last 14 days. chills, congestion, cough unrelated to allergies, diarrhea, difficulty breathing, fatigue, fever, headache, muscle pain, nausea, runny nose, shaking with chills, shortness of breath, sore throat, loss of taste or smell, vomiting. Client presents with at least one sign or symptom that may indicate coronavirus-19. Standard/surgical mask placed on the client. Ebola Screen: Patient denies travel to an Ebola-affected area in the 21 days before illness onset. Initial Sepsis Screen: Does the patient meet any 2 criteria? HR > 90 bpm. No. Patient's initial sepsis screen is negative. Does the patient have a suspected source of infection? Yes: Productive cough/pneumonia. Risk Assessment: Do you want to hurt yourself or someone else? Patient reports no desire to harm self or others. Onset of symptoms was May 22, 2022. 17:48 Method Of Arrival: Ambulatory ll1 17:48 Acuity: WENDI 3 ll1 Triage Assessment: 22:01 General: Appears in no apparent distress. Behavior is calm, cooperative. Pain: Denies tw5 pain. [employer]: 22:02 LMP 04/02/2022, Verified, EDC 01/07/2023, Gestational age from LMP: 9 weeks 5 tw5 days Historical: - Allergies: 17:51 No Known Allergies; ll1 - PMHx: 17:51 None; ll1 - PSHx: 17:51 gastric sleeve; section; ll1 - Immunization history:: Client reports receiving the 1st dose of the Covid vaccine. - Social history:: Smoking status: Patient denies any tobacco usage or history of. Screenin:59 [facility] ED Fall Risk Assessment (Adult) History of falling in the last 3 months, tw5 including since admission. Abuse screen: Denies threats or abuse. Denies injuries from another. Nutritional screening: No deficits noted. Tuberculosis screening: No symptoms or risk factors identified. Assessment: 21:18 General: Appears in no apparent distress. Behavior is calm, cooperative, appropriate tw5 for age. Neuro: No deficits noted. Cardiovascular: No deficits noted. 21:59 Reassessment: Patient states feeling better. Patient states symptoms have improved. tw5 General: Behavior is drowsy. Vital Signs: 17:48 BP 119 / 76; Pulse 91; Resp 18; Temp 99.7; Pulse Ox 98% ; Weight 92.53 kg; Height 5 ft. ll1 2 in. (157.48 cm); Pain 8/10; 21:59 BP 108 / 74; Pulse 90; Resp 18; Temp 98.6; Pulse Ox 100% ; tw5 17:48 Body Mass Index 37.31 (92.53 kg, 157.48 cm) ll1 ED Course: 17:12 Patient arrived in ED. am2 17:16 John Connell PA is PHCP. jmm 17:16 Kevin Vanegas MD is Attending Physician. [facility] 17:51 Triage completed. ll1 17:55 COVID-19/FLU A+B Sent. ll1 19:29 Jen Carranza is Primary Nurse. tw5 20:33 BMP Sent. as7 20:33 CBC with Diff Sent. as7 21:24 PHCP role handed off by John Connell PA cp 21:24 Kevin Walker PA is PHCP. cp 21:38 Chest Single View XRAY In Process Unspecified. EDMS 21:59 No provider procedures requiring assistance completed. IV discontinued, intact, tw5 bleeding controlled, No redness/swelling at site. Pressure dressing applied. 21:59 Patient has correct armband on for positive identification. tw5 22:02 Arm band placed on. tw5 Administered Medications: 21:00 Drug: Lactated Ringers Solution 1000 ml Route: IV; Rate: 1000 bolus; Site: left as6 antecubital; 21:59 Follow up: Response: No adverse reaction; IV Status: Completed infusion; IV Intake: tw5 1000ml 21:00 Drug: Reglan (metoCLOPramide) 10 mg Route: IVP; Site: left antecubital; as6 21:59 Follow up: Response: No adverse reaction tw5 21:00 Drug: diphenhydrAMINE 12.5 mg Route: IVP; Site: left antecubital; as6 21:58 Follow up: Response: No adverse reaction tw5 Medication: 21:59 VIS not applicable for this client. tw5 Intake: 21:59 IV: 1000ml; Total: 1000ml. tw5 Outcome: 21:52 Discharge ordered by . shaggy 21:59 Discharged to home ambulatory. tw5 21:59 Condition: improved 21:59 Discharge instructions given to patient, Instructed on discharge instructions, follow up and referral plans. Demonstrated understanding of instructions, follow-up care, medications, Prescriptions given X 2. 22:02 Patient left the ED. 5 Signatures: Dispatcher [employer] EDMS John Connell PA PA jmm Page, Corey, PA PA cp Moreno, Amanda am2 Zenon Ellis RN RN 1 Jen Carranza tw5 Vivek Varghese RN RN as6 Jennifer Kulkarni as7
--- NOTE | 2022-06-08 21:52 | EDPHYS ---
Physician Documentation [facility] Name: Dahlia Justin Age: 26 yrs Sex: Female : 1995 Arrival Date: 06/08/2022 Time: 17:12 Bed 10 Private MD: ED Physician Kevin Vanegas HPI: 06/08 17:35 This 26 yrs old Female presents to ER via Ambulatory with complaints of Flu jmm Symptoms. 17:35 The patient presents to the emergency department with nausea, vomiting. Onset: The jmm symptoms/episode began/occurred gradually, 2 week(s) ago. This is a 26 year old female currently 8 weeks that presents to the ED with complaints of nausea, vomiting, sinus congestion beginning approx 2 week ago. Patient has tried otc medication with no relief. Patient states she had similar episodes with her last . . REHABILITATION LIAISON: 22:02 LMP 04/02/2022, Verified, EDC 01/07/2023, Gestational age from LMP: 9 weeks 5 tw5 days Historical: - Allergies: 17:51 No Known Allergies; ll1 - PMHx: 17:51 None; ll1 - PSHx: 17:51 gastric sleeve; section; ll1 - Immunization history:: Client reports receiving the 1st dose of the Covid vaccine. - Social history:: Smoking status: Patient denies any tobacco usage or history of. ROS: 17:35 Constitutional: Positive for body aches, chills. jmm 17:35 ENT: Positive for sinus congestion. 17:35 Respiratory: Positive for cough. 17:35 Abdomen/GI: Positive for nausea and vomiting. 17:35 All other systems are negative. Exam: 17:35 Constitutional: This is a well developed, well nourished patient who is awake, alert, jmm and in no acute distress. Head/Face: atraumatic. Eyes: EOMI, no conjunctival erythema appreciated ENT: Moist Mucus Membranes Neck: Trachea midline, Supple Chest/axilla: Normal chest wall appearance and motion. Cardiovascular: Regular rate and rhythm. No edema appreciated Respiratory: Normal respirations, no respiratory distress appreciated Abdomen/GI: Non distended Back: Normal ROM Skin: General appearance color normal MS/ Extremity: Moves all extremities, no obvious deformities appreciated, no edema noted to the lower extremities Neuro: Awake and alert Psych: Behavior is normal, Mood is normal, Patient is cooperative and pleasant Vital Signs: 17:48 BP 119 / 76; Pulse 91; Resp 18; Temp 99.7; Pulse Ox 98% ; Weight 92.53 kg; Height 5 ft. ll1 2 in. (157.48 cm); Pain 8/10; 21:59 BP 108 / 74; Pulse 90; Resp 18; Temp 98.6; Pulse Ox 100% ; tw5 17:48 Body Mass Index 37.31 (92.53 kg, 157.48 cm) ll1 MDM: 17:35 Patient medically screened. [facility] 21:00 Differential diagnosis: gastritis, viral gastroenteritis, gastroenteritis, UTI, cp pneumonia, influenza, COVID-19, sinusitis. 21:52 Data reviewed: vital signs, nurses notes, lab test result(s), radiologic studies, plain cp films. 21:52 Test interpretation: by ED physician or midlevel provider: plain radiologic studies. cp Counseling: I had a detailed discussion with the patient and/or guardian regarding: the historical points, exam findings, and any diagnostic results supporting the discharge/admit diagnosis, lab results, radiology results, to return to the emergency department if symptoms worsen or persist or if there are any questions or concerns that arise at home. Response to treatment: the patient's symptoms have markedly improved after treatment, VSS. Nausea markedly improved, patient tolerating po fluids. Will discharge to home for continued monitoring. 06/08 17:35 Order name: CBC with Diff; Complete Time: 20:37 [facility] 06/08 21:47 Interpretation: Normal except: WBC 13.40; RBC 5.25; MCV 79.6; MPV 7.5; CYNDI% 76.9; NEUT cp A 10.3. 06/08 17:35 Order name: BMP; Complete Time: 20:49 [facility] 06/08 17:37 Order name: COVID-19/FLU A+B; Complete Time: 19:42 [facility] 06/08 20:33 Order name: Urine Dipstick-Ancillary; Complete Time: 20:37 [facility] 06/08 20:38 Order name: Chest Single View XRAY; Complete Time: 21:47 [facility] 06/08 17:35 Order name: Saline Lock; Complete Time: 20:33 [facility] 06/08 17:35 Order name: Urine Dipstick-Ancillary (obtain specimen); Complete Time: 20:33 [facility] 06/08 21:47 Order name: PO challenge; Complete Time: 21:59 cp Administered Medications: 21:00 Drug: Lactated Ringers Solution 1000 ml Route: IV; Rate: 1000 bolus; Site: left as6 antecubital; 21:59 Follow up: Response: No adverse reaction; IV Status: Completed infusion; IV Intake: tw5 1000ml 21:00 Drug: Reglan (metoCLOPramide) 10 mg Route: IVP; Site: left antecubital; as6 21:59 Follow up: Response: No adverse reaction tw5 21:00 Drug: diphenhydrAMINE 12.5 mg Route: IVP; Site: left antecubital; as6 21:58 Follow up: Response: No adverse reaction tw5 Disposition Summary: 06/08/22 21:52 Discharge Ordered Location: Home cp Problem: new cp Symptoms: have improved cp Condition: Stable cp Diagnosis - Cough cp - Nasal congestion cp - Vomiting of , unspecified cp Followup: cp - With: Private Physician - When: 2 - 3 days - Reason: Worsening of condition Discharge Instructions: - Discharge Summary Sheet cp - Nausea and Vomiting, Adult cp - Cool Mist Vaporizer cp - Cough, Adult cp Forms: - Medication Reconciliation Form cp - Thank You Letter cp - Antibiotic Education cp - Prescription Opioid Use cp Prescriptions: - Amoxicillin 875 mg Oral Tablet - take 1 tablet by ORAL route every 12 hours for 10 days; 20 tablet; Refills: 0, cp Product Selection Permitted - Zofran 4 mg Oral Tablet - take 1 tablet by ORAL route every 12 hours As needed; 20 tablet; Refills: 0, cp Product Selection Permitted Signatures: Dispatcher [employer] John Burnette PA PA jmm Page, Corey, PA PA cp Lewis, Lynsay RN RN ll1 Vivek Varghese RN RN as6 Jen Carranza tw5
[2022-06-08 22:11] VITALS: BP 108/74; TEMP 98.6; O2SAT 100
== END 2022-06-08 22:02 | disposition home or self-care (01) ==
LOC: ER 17:09
DX: O99.511 Diseases of the respiratory system complicating pregnancy, first trimester (principal); R09.81 Nasal congestion; R05.9 Cough, unspecified; O21.9 Vomiting of pregnancy, unspecified; Z3A.09 9 weeks gestation of pregnancy; Z20.822 Contact with and (suspected) exposure to COVID-19
CPT/HCPCS: 85025; 80048; 36415; 81003; 0240U; 71045; J2765; J1200; J7120; 96361; 96374; 96375; 99284